=== PATIENT | female | born 1935 | race Caucasian/White ===

== ENCOUNTER 2017-09-10 12:00 | Inpatient (IN) ==
[2017-09-10] MEDS ORDERED: Nitroglycerin 0.4 MG TAB.SUBL SL ONE (12:10)
--- NOTE | 2017-09-10 12:12 | Emergency Department Note ---
Disposition Clinical Impression: Chest pain Qualifiers: Chest pain type: unspecified Qualified Code(s): R07.9 - Chest pain, unspecified A-fib Qualifiers: Atrial fibrillation type: unspecified Qualified Code(s): I48.91 - Unspecified atrial fibrillation Disposition: Admitted As Inpatient Condition: Good Time of Disposition: 16:20 General Adult HPI - General Chief complaint: ED Chest Pain Stated complaint: CP Time Seen by Provider: 09/10/17 12:09 Source: patient, EMS Mode of arrival: EMS Limitations: no limitations Nursing Notes Reviewed: Yes Vital Signs Reviewed: Yes - History of Present Illness HPI Narrative: Patient started having chest pain that woke her up around 3 AM this morning. She did take 324 mg of aspirin. Reports that the pain was almost completely relieved with 2 nitroglycerin. She reports no cardiac history. No shortness of breath. Denies a feeling of palpitations. No radiation of the pain. Quality is an 8. Pain Scale: 4 - Related Data Home Medications Medication Instructions Recorded Confirmed Amlodipine Besylate/Benazepril 1 cap PO DAILY 09/10/17 09/10/17 [Lotrel 10-20 mg Capsule] Aspirin/Acetaminophen/Caffeine 1 tab PO Q8H PRN 09/10/17 09/10/17 [Excedrin Extra Strength Caplet] Metoprolol [Lopressor] 25 mg PO BID 09/10/17 09/10/17 Allergies Allergy/AdvReac Type Severity Reaction Status Date / Time Sulfa (Sulfonamide Allergy Hives Verified 12/13/15 20:46 Antibiotics) All systems ED: reviewed and negative except as stated. Constitutional: Denies: fever, chills Cardiovascular: Reports: chest pain. Denies: palpitations, dyspnea on exertion , syncope Respiratory: Denies: cough, dyspnea Gastrointestinal: Denies: abdominal pain, nausea, vomiting, diarrhea Genitourinary: Denies: urgency, dysuria, frequency Musculoskeletal: Denies: back pain, neck pain Neurological: Denies: headache, weakness Past Medical History - Past Medical History Medical history: Reports: arthritis, hypertension Psychiatric history: Reports: no psych history - Social History Smoking Status: Never smoker Smokeless Tobacco Status: No Alcohol use: Reports: none Drug use: Reports: none Physical Exam - General Limitations: no limitations General appearance: alert, in no apparent distress - Head Head exam: atraumatic, normocephalic, normal inspection - Eye Eye exam: Present: normal appearance, PERRL, EOMI. Absent: scleral icterus - ENT ENT exam: normal exam, normal oropharynx, mucous membranes moist - Neck Neck exam: Present: normal inspection, full ROM, trachea midline. Absent: tenderness, meningismus - Chest Chest inspection: Present: normal inspection, symmetric chest wall rise - Respiratory Respiratory exam: Present: normal lung sounds bilaterally. Absent: respiratory distress, accessory muscle use - Cardiovascular Cardiovascular exam: Present: regular rate, irregular rhythm, normal heart sounds - Abdominal Exam Abdominal exam: Present: soft, Non-Tender. Absent: tenderness, distention - Extremities Exam Extremities exam: Present: normal inspection, full ROM, normal capillary refill. Absent: tenderness, pedal edema - Back Exam Back exam: Present: normal inspection, full ROM. Absent: tenderness, CVA tenderness (R), CVA tenderness (L) - Neurological Exam Neurological exam: Present: alert, oriented X3 - Psychiatric Psychiatric exam: Present: normal affect, normal mood - Skin Skin exam: Present: warm, dry, intact, normal color. Absent: rash Course Course Narrative: Well-appearing elderly female presenting to the emergency department complaining of chest pain that began at 3 AM this morning. She states it woke her from sleep. It radiates into her back. No history of any cardiac disease. Is a nonsmoker. We will monitor this afternoon and was given 2 nitroglycerin which almost completely relieved the pain. She did also take 324 mg of aspirin prior to arrival. She is resting comfortably and does not appear to be in any distress at all. She does not appear to be 82 she appears to be younger on exam. Lung sounds are clear heart tones are normal. She denies any recent illnesses. She did have some nausea this morning however is no longer nauseated. She denies any abdominal pain. She does have bilateral lower extremity swelling that is chronic. We will get a cardiac workup on patient I anticipate admission. Patient is in A. fib at this time. This is a new problem for the patient. She has no history of this. She is currently taking the beta nanci. Her A. fib has been controlled around the 90s while she is here. - Reevaluation(s) Reevaluation #1: We will admit patient to the hospital for her new onset A. fib. We are withholding anticoagulation at this time due to a history of GI bleeding. This was 3 weeks ago. Time: 16:14 - Consultations Consultation #1: Dr Coello was consult. Due to patient's increased Chads vasc score he recommended heparinization of the patient if she had no contraindications. The patient does have a history of GI bleeding as recently as 3 weeks ago. We will withhold anticoagulation at this time. Time: 16:02 Consultation #2: Dr Mcqueen accepted pt in stable condiiton. Time: 16:16 Vital Signs Temperature 98.0 F 09/10/17 12:02 Pulse Rate 111 09/10/17 12:02 Respiratory Rate 18 09/10/17 12:02 Blood Pressure 119/81 09/10/17 12:02 O2 Sat by Pulse Oximetry 97 09/10/17 12:02 Temperature 98.0 F 09/10/17 12:02 Pulse Rate 99 09/10/17 15:08 Respiratory Rate 16 09/10/17 16:47 Blood Pressure 133/79 09/10/17 15:08 O2 Sat by Pulse Oximetry 95 09/10/17 15:08 Oxygen Delivery Oxygen Delivery Room Air Medical Decision Making - Medical Records Medical records reviewed: Yes I reviewed the patient's medical records. - Lab Data Lab results reviewed: Yes I reviewed the patient's lab results. Result diagrams: 09/10/17 12:24 09/10/17 12:24 Lab Results 09/10/17 09/10/17 09/10/17 Range/Units 12:24 12:24 12:24 WBC 11.5 H (4.3-11.1) K/mcL RBC 4.39 (3.82-4.97) M/mcL Hgb 12.6 (11.5-15.4) g/dL Hct 39.7 (35.3-44.9) % MCV 90.4 (83.0-100.0) fL MCH 28.7 (28.0-33.3) pg MCHC 31.7 (31.6-35.5) g/dL RDW 13.3 (11.5-14.5) % Plt Count 184 (140-400) K/mcL MPV 10.8 (9.4-12.4) fL Immature Gran % 0.5 (0-4) % Seg Neutrophils % 92.0 % Lymphocytes % 4.8 % Monocytes % 2.2 % Eosinophils % 0.1 % Basophils % 0.4 % Neutrophils # 10.6 H (1.6-8.9) K/mcL Lymphocytes # 0.6 (0.6-4.6) K/mcL Monocytes # 0.3 (0.0-1.3) K/mcL Eosinophils # 0.0 (0.0-0.6) K/mcL Basophils # 0.1 (0.0-0.2) K/mcL PT 11.2 (9.4-12.1) Seconds INR 1.0 APTT 28.2 (26.0-36.0) Seconds Sodium 140 (136-145) mEq/L Potassium 3.8 (3.5-5.1) mEq/L Chloride 110 H (98-107) mEq/L Carbon Dioxide 21 L (23-29) mEq/L BUN 25 H (8-23) mg/dL Creatinine 1.34 H (0.60-1.20) mg/dL Est GFR ( Amer) 46 L (> 60) Est GFR (Non-Af Amer) 38 L (> 60) BUN/Creatinine Ratio 19 (6-26) Glucose 149 H (70-105) mg/dL Calculated Osmolality 297 (280-300) Calcium 9.1 (8.6-10.3) mg/dL Troponin I < 0.03 (< 0.04) ng/mL TSH 1.077 (0.340-5.600) mcIU/mL - Radiology Data Radiology results reviewed: Yes I reviewed the patient's radiology results. - EKG Data EKG #1 EKG attestation: Yes I reviewed and interpreted this EKG. EKG results narrative: A. fib at a rate of 96. QRS duration is 93. QT is 369. QTC is 423. No signs of acute ischemia however she was in a normal sinus rhythm in January 2005. Attestation Statement - Attestation Attestation: I examined this patient and my medical decision-making was reviewed with the Resident Physician, Dr. Guerrero. I agree with the documented findings, disposition and treatment plan as described except to the extent set forth below. Patient is an 82-year-old elderly white female with a history of hypertension who presents to the emergency department with her daughter who resides with her at home for acute onset of epigastric and left-sided chest pain that woke her from sleep at about 3:30 this morning. Patient states she has had cardiac testing echocardiograms and stress test in the past but nothing that has been abnormal or required additional treatment. Patient states that she received aspirin and 2 nitroglycerin by EMS in route and on arrival to the emergency department is pain-free at this time. Patient is asymptomatic here. I agree with patient's physical exam findings and as documented. Vital signs are stable. EKG shows atrial fibrillation at a rate of 96 bpm. No acute ischemia seen. This is new compared to her prior EKGs in the system. Patient denies any prior history of rate problems or atrial fibrillation. We will continue to watch the patient closely as well as lab evaluation, chest x -ray, and continue observing her rate. At this time she does not require rate control. Patient will likely require admission to the hospital for further cardiac evaluation for new onset atrial fibrillation as well as chest pain. I examined this patient and my medical decision-making was reviewed with the Resident Physician. I agree with the documented findings, disposition and treatment plan as described except to the extent set forth below.
[2017-09-10 12:44] LABS: Basophils # 0.1 K/mcL (0.0-0.2); Basophils % 0.4 %; Eosinophils % 0.1 %; Hematocrit 39.7 % (35.3-44.9); Hemoglobin 12.6 g/dL (11.5-15.4); Immature Granulocytes % 0.5 % (0-4); Lymphocytes # 0.6 K/mcL (0.6-4.6); Lymphocytes % 4.8 %; Mean Corpuscular HGB Conc 31.7 g/dL (31.6-35.5); Mean Corpuscular Hemoglobin 28.7 pg (28.0-33.3); Mean Corpuscular Volume 90.4 fL (83.0-100.0); Mean Platelet Volume 10.8 fL (9.4-12.4); Monocytes # 0.3 K/mcL (0.0-1.3); Monocytes % 2.2 %; Neutrophils # 10.6 K/mcL (1.6-8.9); Platelet Count 184 K/mcL (140-400); Red Blood Count 4.39 M/mcL (3.82-4.97); Red Cell Distribution Width 13.3 % (11.5-14.5)
[2017-09-10 12:50] LABS: Prothrombin Time 11.2 Seconds (9.4-12.1)
[2017-09-10 12:52] LABS: Activated Partial Thrombo Time 28.2 Seconds (26.0-36.0)
[2017-09-10 12:58] LABS: Troponin I < 0.03 ng/mL (< 0.04)
[2017-09-10 13:01] LABS: BUN/Creatinine Ratio 19 (6-26); Blood Urea Nitrogen 25 mg/dL (8-23); Calcium 9.1 mg/dL (8.6-10.3); Carbon Dioxide 21 mEq/L (23-29); Chloride 110 mEq/L (98-107); Glucose 149 mg/dL (70-105); Osmolality,Calculated 297 (280-300); Potassium 3.8 mEq/L (3.5-5.1); Sodium 140 mEq/L (136-145); eGFR For African Americans 46 (> 60); eGFR For Non-African Americans 38 (> 60)
[2017-09-10 13:12] LABS: Thyroid Stimulating Hormone 1.077 mcIU/mL (0.340-5.600)
[2017-09-10] MEDS ORDERED: *HR* Heparin 5,000 UNIT/ML VIAL IVP PRN ×2 (15:56)
[2017-09-10] MEDS ORDERED: *HR* Heparin 5,000 UNIT/ML VIAL IVP ONE (15:56)
[2017-09-10] MEDS ORDERED: Heparin 25,000 UNIT/500 ML D5W 25,000 UNIT/500 ML BAG IVC SCH (16:00)
[2017-09-10] MEDS ORDERED: Naloxone 0.4 MG/ML INJ IVP PRN (16:42)
[2017-09-10] MEDS ORDERED: traMADol 50 MG TABLET PO PRN (16:42)
[2017-09-10] MEDS ORDERED: Metoprolol XL (24 HR) Succ 25 MG TAB.ER.24H PO SCH (16:45)
--- NOTE | 2017-09-10 16:56 | Internal Med History&Physical ---
Date of Encounter: 09/10/17 Time of Encounter: 16:49 Assessment and Plan (1) Chest pain Current visit: Yes Status: Acute - Likely cardiac related given afib with RVR, and relieved by nitro. - troponin negativex1. will cycle. - EKG afib with no ST-T changes. - ECHO ordered. - tele monitoring. Qualifiers: Chest pain type: unspecified Qualified Code(s): R07.9 - Chest pain, unspecified (2) A-fib Current visit: Yes Status: Acute - Had PAF in the past but resolved, not on AC prior to admission. - ChADSvas score 4, anticoagulatin was recommended by cardio. will start her on LMWH with therapeutic dose. Can be switched to Coumadin or NOAC if needed. - increase Lopressor to 25 mg BID, home dose 12.5 mg BID. Rate currently 90- 110. BP stable, no chest pain. - IVF for possible dehydration - ECHO ordered, cardio consulted, appreciate help. Qualifiers: Atrial fibrillation type: unspecified Qualified Code(s): I48.91 - Unspecified atrial fibrillation (3) Hypertension Current visit: No Status: Chronic - stable, controlled. Qualifiers: Hypertension type: essential hypertension Qualified Code(s): I10 - Essential (primary) hypertension (4) Diverticulosis Current visit: No Status: Chronic - high-fiber diet. Qualifiers: Diverticulosis site: unspecified location Diverticulosis bleeding: diverticulosis without bleeding Qualified Code(s): K57.90 - Diverticulosis of intestine, part unspecified, without perforation or abscess without bleeding (5) OSKAR (acute kidney injury) Current visit: Yes Status: Acute - unknown baseline creatinine, will give IVF and repeat RFP in am. Internal Medicine - H&P: HPI Admitted From: Home Plans for Post Hospital Care: Home History of present illness: Ms. Puente is a 82 year old female with past medical history of hypertension and arthritis presented to the emergency department complaining of chest pain that began at 3 AM this morning. She states it woke her from sleep. It radiates into her back. No history of any cardiac disease besides HTN. She is a nonsmoker. She did also take 324 mg of aspirin prior to arrival. She was given 2 nitroglycerin at ED which almost completely relieved the pain. She denies any recent illnesses. She did have some nausea this morning however is no longer nauseated. She denies any abdominal pain. She does have bilateral lower extremity swelling that is chronic. At the ED, her vital signs were stable besides tachycardia. EKG revealed atrial fibrillation with rapid ventricular response and heart rate was around 110-130. Patient did report a remote history of atrial fib about 9 years ago but that was resolved spontaneously. She takes Lopressor for hypertension but not on any anticoagulation agent. Her labs revealed normal CBC, slightly elevated creatinine, blood glucose. Troponin was negative, TSH was normal. Cardiology was consulted and recommended anticoagulation. She will be admitted as inpatient for further management. Past Med Surg Social Fam HX - Past Medical History Medical history: arthritis, hypertension Psychiatric history: no psych history - Social History Smoking Status: Never smoker Smokeless Tobacco Status: No Alcohol use: none Drug use: none Internal Medicine - H&P: Meds Amlodipine Besylate/Benazepril [Lotrel 10-20 mg Capsule] 1 cap PO DAILY [History] Aspirin/Acetaminophen/Caffeine [Excedrin Extra Strength Caplet] 1 tab PO Q8H PRN 09/10/17 [History] Metoprolol [Lopressor] 25 mg PO BID 09/10/17 [History] 3 Allergy/AdvReac Type Severity Reaction Status Date / Time Sulfa (Sulfonamide Allergy Hives Verified 12/13/15 20:46 Antibiotics) All Systems PM: A 10-system review of systems was performed and is negative for pertinent findings except as documented above in the HPI. Review of systems: REVIEW OF SYSTEMS: CONSTITUTIONAL: No weight loss, fever, chills, weakness or fatigue. HEENT: Eyes: No visual loss, blurred vision, double vision or yellow sclerae. Ears, Nose, Throat: No hearing loss, sneezing, congestion, runny nose or sore throat. SKIN: No rash or itching. CARDIOVASCULAR: see HPI. RESPIRATORY: see HPI. GASTROINTESTINAL: see HPI. GENITOURINARY: No dysuria, urgency, or frequency. NEUROLOGICAL: No headache, dizziness, syncope, paralysis, ataxia, numbness or tingling in the extremities. No change in bowel or bladder control. MUSCULOSKELETAL: No muscle, back pain, joint pain or stiffness. HEMATOLOGIC: No anemia, bleeding or bruising. LYMPHATICS: No enlarged nodes. No history of splenectomy. PSYCHIATRIC: No history of depression or anxiety. ENDOCRINOLOGIC: No reports of sweating, cold or heat intolerance. No polyuria or polydipsia. - Constitutional Vitals: Temp Pulse Resp BP Pulse Ox 98.0 F 99 16 133/79 95 09/10/17 12:02 09/10/17 15:08 09/10/17 16:47 09/10/17 15:08 09/10/17 15:08 General appearance: Present: A&O X 3 Exam: PHYSICAL EXAMINATION: GENERAL APPEARANCE: The patient is alert, oriented and in no acute distress. HEENT: Head is normocephalic. The sinuses are nontender. Pupils are equal and reactive. The nares are patent. Oropharynx clear without lesions. NECK: Supple without lymphadenopathy. HEART: Regular rate and rhythm. LUNGS: No crackles or wheezes are heard. ABDOMEN: Soft, nontender, nondistended with good bowel sounds heard. Inguinal area is normal. EXTREMITIES: Without cyanosis, clubbing or edema. NEUROLOGICAL: Gross nonfocal. SKIN: Warm and dry without any rash. Internal Med - H&P Results - Labs CBC & Chem 7: 09/10/17 12:24 09/10/17 12:24
[2017-09-10] MEDS: *HR* Enoxaparin 80 MG/0.8 ML SYRINGE SQ SCH (17:14)
[2017-09-10] MEDS: Ringers Solution, Lactated 1,000 ML IVC SCH (18:55)
--- NOTE | 2017-09-10 22:35 | Cardiology Consult Note ---
Date of Encounter: 09/10/17 Time of Encounter: 22:32 Assessment and Plan (1) Chest pain Current Visit: Yes Status: Acute Atypical presentation with negative cardiac markers and unremarkable EKG. Consider inpatient versus outpatient chemical stress test Qualifiers: Chest pain type: unspecified Qualified Code(s): R07.9 - Chest pain, unspecified (2) A-fib Current Visit: Yes Status: Acute Parts is mitral for ablation likely suspected elevated risk for stroke therefore anticoagulated and recommended upon discharge. Patient has history of rectal bleeds possibly from her diverticulitis in the past. Would ask primary team for clearance in regards to starting anti-coagulation therapy. Continue rate control and titrate as tolerated. Echocardiogram to evaluate for structural heart abnormalities Qualifiers: Atrial fibrillation type: unspecified Qualified Code(s): I48.91 - Unspecified atrial fibrillation Discussion w patient/family: The assessment and plan as outlined above was discussed with the patient and/or family members who expressed understanding and agreement. All questions were answered. Thank you for involving us in the care of your patient. Please call with any questions. History of Present Illness Consult date: 09/10/17 Consult reason: chest pain Chief complaint: chest pain History of present illness: Ms. Puente is a 82 year old female with history of hypertension diverticulitis presents with chest pain. Patient describes atypical type chest pain retrosternal described as pressure-like nonradiating with no aggravating or relieving factors. She also denies any associated symptoms. Her troponins are negative 3 and chest x-ray unremarkable. On evaluation patient was noted to be atrial fibrillation with no significant EKG changes suggestive of ischemia. Patient states she has had 1 episodes of bright red blood from her diverticulitis recently. Her chadsVasc score is 4. She denies any palpitations and is unaware of her atrial fibrillation. There is some documentation of a previous history of proximal atrial fibrillation in the remote past. We discussed risks benefits and alternatives of stroke risk reduction with an antiplatelet versus anticoagulation and she is agreed to pursue anticoagulation. I will defer her GI workup to the hospitalist group in regards to her safety starting anticoagulation. Past Med Surg Social Fam HX - Past Medical History Medical history: arthritis, hypertension Psychiatric history: no psych history - Social History Smoking Status: Never smoker Smokeless Tobacco Status: No Alcohol use: none Drug use: none - Family History Mother History Unknown: Yes Medications and Allergies Amlodipine Besylate/Benazepril [Lotrel 10-20 mg Capsule] 1 cap PO DAILY [History] Aspirin/Acetaminophen/Caffeine [Excedrin Extra Strength Caplet] 1 tab PO Q8H PRN 09/10/17 [History] Metoprolol [Lopressor] 25 mg PO BID 09/10/17 [History] 3 Allergy/AdvReac Type Severity Reaction Status Date / Time Sulfa (Sulfonamide Allergy Hives Verified 12/13/15 20:46 Antibiotics) All Systems Review: The remainder of the systems were reviewed and are negative Physical Examination Vital Signs, Last 4 Hours Temp Pulse Resp BP Pulse Ox 09/10/17 19:09 98.3 F 69 18 128/93 96 General: Conversant, No Apparent Distress HEENT: Atraumatic, Normocephaly, Mucus Membranes Moist Neck: No JVD, Normal carotid pulses Cardiac: Reg Rate and Rhythm, Normal S1 and S2, No Murmur Lungs: Normal Breath Sounds, No Wheeze, Rales, Rhonchi Neuro: Alert and responsive, No focal deficits noted Abdomen: Soft, Non-Tender Skin: No rashes noted on visualized skin Musculoskeletal: No Chest Wall Tenderness Extremities: No Clubbing, No Cyanosis, No Edema, Normal Pulses Results 09/10/17 12:24 09/10/17 12:24 Lab Results 09/10/17 17:45 Troponin I < 0.03 Consult Discharge Plan - Plan Referrals: NONE,PCP [Primary Care Provider] -
[2017-09-11 03:51] LABS: Hematocrit 37.6 % (35.3-44.9); Hemoglobin 11.8 g/dL (11.5-15.4); Mean Corpuscular HGB Conc 31.4 g/dL (31.6-35.5); Mean Corpuscular Hemoglobin 28.3 pg (28.0-33.3); Mean Corpuscular Volume 90.2 fL (83.0-100.0); Platelet Count 178 K/mcL (140-400); Red Blood Count 4.17 M/mcL (3.82-4.97); Red Cell Distribution Width 13.4 % (11.5-14.5)
[2017-09-11 04:20] LABS: Magnesium 2.1 mg/dL (1.6-2.6); Potassium 3.5 mEq/L (3.5-5.1)
[2017-09-11] MEDS: Ringers Solution, Lactated 1,000 ML IVC SCH (05:26)
[2017-09-11] MEDS: amLODIPine 5 MG TABLET PO SCH (08:07)
[2017-09-11] MEDS ORDERED: Lisinopril 20 MG TABLET PO SCH (09:00)
--- NOTE | 2017-09-11 09:02 | Cardiology Progress Note ---
Date of Encounter: 09/11/17 Time of Encounter: 09:00 Assessment and Plan (1) Chest pain Current Visit: Yes Status: Acute Per Cardiolpogy: Atypical presentation with troponins negative x 2. Echo pending. Consider inpatient versus outpatient chemical stress test. Qualifiers: Chest pain type: unspecified Qualified Code(s): R07.9 - Chest pain, unspecified (2) A-fib Current Visit: Yes Status: Acute Per Cardiology: Appears to be new onset. Average heart rate 91 on telemetry, remains A. fib. Currently A. fib in the 90s. Will increase BB for better HR control. SBP stable. Continue rate control and titrate as tolerated. Echocardiogram pending to evaluate for structural heart abnormalities. Regarding long-term anticoagulation, patient has history of rectal bleeds possibly from her diverticulitis in the past. Would ask primary team for clearance in regards to starting anti-coagulation therapy. Qualifiers: Atrial fibrillation type: unspecified Qualified Code(s): I48.91 - Unspecified atrial fibrillation (3) OSKAR (acute kidney injury) Current Visit: Yes Status: Acute Per Cardiology: Appears to mild OSKAR. Will decrease ACEI. Discussion w patient/family: The assessment and plan as outlined above was discussed with the patient and/or family members who expressed understanding and agreement. All questions were answered. Thank you for involving us in the care of your patient. Please call with any questions. Subjective Principal diagnosis: CP, afib Interval history: Denies any concerns over night. Denies any chest pain, shortness of breath, palpitations. Symptoms reported appear to be GERD-like in presentation. Objective Vital Signs, Last 4 Hours Temp Pulse Resp BP Pulse Ox 09/11/17 08:13 95 09/11/17 07:14 98.6 F 94 16 153/82 95 General: Conversant, No Apparent Distress HEENT: Atraumatic, Normocephaly Cardiac: No Murmur, Other (Irregularly irregular) Lungs: Normal Breath Sounds, No Wheeze, Rales, Rhonchi Neuro: Alert and responsive, No focal deficits noted Abdomen: Soft Skin: No rashes noted on visualized skin Extremities: No Edema, Normal Pulses Results 09/11/17 02:53 09/11/17 02:53 Lab Results Laboratory Tests 09/10/17 09/10/17 09/10/17 12:24 12:24 17:45 INR 1.0 Creatinine Est GFR (Non-Af Amer) Magnesium Troponin I < 0.03 < 0.03 TSH 1.077 09/11/17 02:53 INR Creatinine 1.34 H Est GFR (Non-Af Amer) 38 L Magnesium 2.1 Troponin I TSH Impressions Chest X-Ray 09/10/17 12:10 IMPRESSION: Cardiomegaly, otherwise, no acute abnormalities seen in the chest D/ / Sumeet Wilcox MD / Sumeet Wilcox MD Interpreting Provider: Sumeet Wilcox MD Intake & Output 09/08/17 09/09/17 09/10/17 09/11/17 23:59 23:59 23:59 23:59 Intake Total 1118 / 1118 Balance 1118 / 1118 Weight 73.255 kg 72.665 kg Active Medications Acetaminophen (Tylenol) 650 mg PO Q6HR PRN PRN Reason: Mild Pain/Fever Stop: 03/12/18 16:43 Amlodipine Besylate (Norvasc) 10 mg PO DAILY [facility] PRN Reason: Protocol Stop: 03/13/18 09:01 Last Admin: 09/11/17 08:07 Dose: 10 mg Calcium Polycarbophil (Fibercon) 625 mg PO BID [facility] Stop: 03/12/18 21:01 Last Admin: 09/11/17 08:07 Dose: 625 mg Enoxaparin Sodium (Lovenox) 70 mg 1 mg/kg (70 mg) SQ QPM [facility] PRN Reason: Protocol Stop: 03/12/18 18:01 Last Admin: 09/10/17 17:14 Dose: 70 mg Lactated Ringer's (Lactated Ringers) 1,000 mls @ 100 mls/hr IVC .Q10H [facility]N Stop: 09/11/17 12:44 Last Admin: 09/11/17 05:26 Dose: 100 mls/hr Lisinopril (Zestril) 20 mg PO DAILY [facility] PRN Reason: Protocol Stop: 03/13/18 09:01 Last Admin: 09/11/17 08:07 Dose: 20 mg Metoprolol Tartrate (Lopressor) 25 mg PO BID [facility] Stop: 03/12/18 21:01 Last Admin: 09/11/17 08:07 Dose: 25 mg Naloxone HCl (Narcan) 0.4 mg IVP Q2MIN PRN PRN Reason: SEE COMMENTS Stop: 03/12/18 16:43 Tramadol HCl (Ultram) 50 mg PO Q6HR PRN PRN Reason: Moderate Pain Stop: 03/12/18 16:43 - Imaging and Cardiology Echo: pending - EKG Interpretation EKG results cardiology: other (Telemetry reviewed with average heart rate 91 the past 12 hours, currently A. fib in the 90s, occasional rare PVCs with longest 3 beats in a row.) Consult Discharge Plan - Plan Referrals: NONE,PCP [Primary Care Provider] -
[2017-09-11] MEDS: Acetaminophen 325 MG TABLET PO PRN (12:29)
--- NOTE | 2017-09-11 13:47 | Internal Med Progress Note ---
Date of Encounter: 09/11/17 Time of Encounter: 13:45 - Assessment and plan (1) Chest pain Current Visit: Yes Status: Acute Assessment and plan: So far negative Trop No acute ST T changes on EKG However since pt is high risk for ACS, scheduled for Stress test in AM Cont ASA + BB 2 D Ehco - P Qualifiers: Chest pain type: unspecified Qualified Code(s): R07.9 - Chest pain, unspecified (2) A-fib Current Visit: Yes Status: Acute Assessment and plan: rate controlled with Metoprolol 50 BID 2 D Echo - P CHADSVASC 3 need anti coag Due to her hemmorhoidal bleeding history and CKD-3 would suggest Coumadin pt is currently on Lovenox daily dose started on Coumadin today Qualifiers: Atrial fibrillation type: unspecified Qualified Code(s): I48.91 - Unspecified atrial fibrillation (3) CKD (chronic kidney disease) stage 3, GFR 30-59 ml/min Current Visit: Yes Status: Acute Assessment and plan: stable Cr (4) Diverticulosis Current Visit: No Status: Chronic Assessment and plan: pt denied any severe GI bleed Denied any Abd pain now she does have very mild external hemorrhoidal bleeding 2 weeks ago need out pt f/u with GI as an out pt had normal Colonoscopy in 2008 as per pt Qualifiers: Diverticulosis site: unspecified location Diverticulosis bleeding: diverticulosis without bleeding Qualified Code(s): K57.90 - Diverticulosis of intestine, part unspecified, without perforation or abscess without bleeding (5) Hypertension Current Visit: No Status: Chronic Assessment and plan: stable with home meds Qualifiers: Hypertension type: essential hypertension Qualified Code(s): I10 - Essential (primary) hypertension - Subjective Interval history: Ms. Puente is a 82 year old female with past medical history of hypertension and arthritis presented to the emergency department complaining of chest pain. She stated it woke her from sleep. It radiates into her back. No history of any cardiac disease besides HTN. She is a nonsmoker. She did also take 324 mg of aspirin prior to arrival. She was given 2 nitroglycerin at ED which almost completely relieved the pain. In the ED, her vital signs were stable besides tachycardia. EKG revealed atrial fibrillation with rapid ventricular response and heart rate was around 110-130. Pt was admitted in the hospital and placed her on tele. She denied any active CP now. - Constitutional Vitals: Temp Pulse Resp BP Pulse Ox 98.4 F 104 16 159/99 93 09/11/17 11:39 09/11/17 11:39 09/11/17 11:39 09/11/17 11:39 09/11/17 11:39 General appearance: Present: A&O X 3, no acute distress, answers questions appropriately - Head Head exam: Present: atraumatic, normal inspection - Neck Neck exam general surgery: Present: supple - Respiratory Respiratory exam: Present: decreased breath sounds, wheezes (mild). Absent: rales, respiratory distress, rhonchi - Cardiovascular Cardiovascular exam: Present: irregular rhythm, +S1, +S2. Absent: systolic murmur, tachycardia - GI/Abdominal GI/Abdominal exam: Present: normal bowel sounds, soft. Absent: rebound, rigid, tenderness - Extremities Exam Extremities exam: Present: pedal edema (chronic). Absent: calf tenderness, tenderness - Back Exam Back exam: Absent: CVA tenderness (L), CVA tenderness (R) - Neurological Exam Neurological exam: Present: alert, oriented X3 - Psychiatric Psychiatric exam: Present: normal affect, normal mood Internal Medicine: Result - Labs CBC & Chem 7: 09/11/17 02:53 09/11/17 02:53 Labs: Short CBC 09/11/17 Range/Units 02:53 WBC 8.7 (4.3-11.1) K/mcL Hgb 11.8 (11.5-15.4) g/dL Hct 37.6 (35.3-44.9) % Plt Count 178 (140-400) K/mcL BMP 09/11/17 02:53 Sodium 143 Potassium 3.5 Chloride 110 H Carbon Dioxide 26 BUN 19 Creatinine 1.34 H Glucose 105 Calcium 9.0 Cardiac Enzymes 09/10/17 Range/Units 17:45 Troponin I < 0.03 (< 0.04) ng/mL - ABG Interpretation ABG results: PT/INR, D-dimer PT 11.2 Seconds (9.4-12.1) 09/10/17 12:24 Consult Discharge Plan - Plan Referrals: NONE,PCP [Primary Care Provider] -
[2017-09-11] MEDS: *HR* Enoxaparin 80 MG/0.8 ML SYRINGE SQ SCH (17:09)
[2017-09-11] MEDS ORDERED: Warfarin perPT PO PRN (18:00)
[2017-09-11] MEDS ORDERED: *HR* Warfarin 3 MG TABLET PO ONE (18:00)
[2017-09-12 04:30] LABS: Basophils # 0.1 K/mcL (0.0-0.2); Basophils % 0.7 %; Eosinophils # 0.3 K/mcL (0.0-0.6); Eosinophils % 3.6 %; Hematocrit 37.3 % (35.3-44.9); Hemoglobin 11.9 g/dL (11.5-15.4); Immature Granulocytes % 0.4 % (0-4); Lymphocytes # 1.4 K/mcL (0.6-4.6); Lymphocytes % 18.9 %; Mean Corpuscular HGB Conc 31.9 g/dL (31.6-35.5); Mean Corpuscular Hemoglobin 28.9 pg (28.0-33.3); Mean Corpuscular Volume 90.5 fL (83.0-100.0); Mean Platelet Volume 10.7 fL (9.4-12.4); Monocytes # 0.7 K/mcL (0.0-1.3); Monocytes % 9.2 %; Neutrophils # 4.8 K/mcL (1.6-8.9); Platelet Count 174 K/mcL (140-400); Red Blood Count 4.12 M/mcL (3.82-4.97); Red Cell Distribution Width 13.7 % (11.5-14.5); Segmented Neutrophils % 67.2 %
[2017-09-12 04:35] LABS: INR 1.1; Prothrombin Time 11.8 Seconds (9.4-12.1)
[2017-09-12 04:46] LABS: Calcium 8.8 mg/dL (8.6-10.3); Magnesium 1.9 mg/dL (1.6-2.6); Potassium 3.6 mEq/L (3.5-5.1)
[2017-09-12] MEDS ORDERED: Regadenoson 0.4 MG/5 ML SYRINGE IVP ONE (06:05)
[2017-09-12] MEDS: Lisinopril 20 MG TABLET PO SCH (07:40)
[2017-09-12] MEDS: amLODIPine 5 MG TABLET PO SCH (07:40)
[2017-09-12] MEDS: Acetaminophen 325 MG TABLET PO PRN (07:45)
--- NOTE | 2017-09-12 07:59 | Cardiology Progress Note ---
Date of Encounter: 09/12/17 Time of Encounter: 07:50 Assessment and Plan (1) Chest pain Current Visit: Yes Status: Acute Per Cardiolpogy: Atypical presentation with troponins negative x 2. Echo showed preserved EF. Stress test pending today. Qualifiers: Chest pain type: unspecified Qualified Code(s): R07.9 - Chest pain, unspecified (2) A-fib Current Visit: Yes Status: Acute Per Cardiology: Appears to be new onset. Average heart rate 84 on telemetry, remains A. fib. Noted to being A. fib in the 130s this morning. Currently A. fib in the 80's - 90's. SBP 130's. Will increase Lopressor to 75 mg by mouth twice a day. We will discontinue Norvasc 10 mg by mouth daily to allow for titration of AV arleth blocking agents. Regarding long-term anticoagulation, patient has history of rectal bleeds possibly from her diverticulitis in the past. Patient has been started on Coumadin for anticoagulation. Will discontinue Lovenox. Will add daily INR. Target INR 2.0-3.0. Qualifiers: Atrial fibrillation type: unspecified Qualified Code(s): I48.91 - Unspecified atrial fibrillation (3) OSKAR (acute kidney injury) Current Visit: Yes Status: Acute Per Cardiology: Appears to mild OSKAR vs CKD (no previous records for comparison). On ACEi. Continue to monitor closely. Discussion w patient/family: The assessment and plan as outlined above was discussed with the patient who expressed understanding and agreement. All questions were answered. Thank you for involving us in the care of your patient. Please call with any questions. Subjective Principal diagnosis: CP, afib Interval history: Patient denies any concerns or complaints. Denies any chest pain, short of breath, palpitations. Objective Vital Signs, Last 4 Hours Temp Pulse Resp BP Pulse Ox 09/12/17 07:19 98.4 F 86 17 137/76 93 General: Conversant, No Apparent Distress Cardiac: No Murmur, Other (Irregularly irregular) Lungs: Normal Breath Sounds, No Wheeze, Rales, Rhonchi Neuro: Alert and responsive, No focal deficits noted Extremities: No Edema Results 09/12/17 04:08 09/12/17 04:08 Lab Results Laboratory Tests 09/10/17 09/10/17 09/12/17 12:24 17:45 04:08 Creatinine 1.45 H Est GFR (Non-Af Amer) 35 L Troponin I < 0.03 < 0.03 Impressions Echocardiogram 09/11/17 16:48 Impressions: LVEF 55%. Indeterminate diastolic function. Normal right ventricular structure and function. Severely dilated left atrium. Severely sclerotic aortic valve leaflets. Mild-moderate mitral regurgitation. Mild pulmonary hypertension. Left Ventricular Wall Motion: Rest Echo Findings All wall segments showed normal motion. Findings: Study Quality * Technically adequate exam. ECG Findings * Atrial fibrillation. Left Ventricle * LVEF 55%. * Indeterminate diastolic function. Right Ventricle * Normal right ventricular structure and function. Left Atrium * Severely dilated left atrium. Right Atrium * Normal right atrial size. Interatrial Septum * No evidence of PFO by color Doppler. Aortic Valve * Severely sclerotic aortic valve leaflets. Mitral Valve * Mild-moderate mitral regurgitation. Tricuspid Valve * Mild tricuspid regurgitation. * Estimated RVSP is 28 mmHg. * Estimated RA pressure is 15 mmHg. * Mild pulmonary hypertension. Pulmonic Valve * Trace pulmonic regurgitation. Aorta * Normally sized aortic root. Pericardium * The pericardium appears normal. IVC * The IVC is dilated. * < 50% respiratory change. Active Medications Acetaminophen (Tylenol) 650 mg PO Q6HR PRN PRN Reason: Mild Pain/Fever Stop: 03/12/18 16:43 Last Admin: 09/12/17 07:45 Dose: 650 mg Calcium Polycarbophil (Fibercon) 625 mg PO BID [facility] Stop: 03/12/18 21:01 Last Admin: 09/12/17 07:40 Dose: 625 mg Enoxaparin Sodium (Lovenox) 70 mg 1 mg/kg (70 mg) SQ QPM [facility] PRN Reason: Protocol Stop: 03/12/18 18:01 Last Admin: 09/11/17 17:09 Dose: 70 mg Lisinopril (Zestril) 10 mg PO DAILY [facility] PRN Reason: Protocol Stop: 03/14/18 09:01 Last Admin: 09/12/17 07:40 Dose: 10 mg Metoprolol Tartrate (Lopressor) 50 mg PO BID [facility] Stop: 03/13/18 21:01 Last Admin: 09/12/17 07:40 Dose: 50 mg Naloxone HCl (Narcan) 0.4 mg IVP Q2MIN PRN PRN Reason: SEE COMMENTS Stop: 03/12/18 16:43 Omeprazole (Prilosec) 20 mg PO DAILY@0630 [facility] PRN Reason: Protocol Stop: 03/13/18 16:06 Last Admin: 09/12/17 06:12 Dose: 20 mg Tramadol HCl (Ultram) 50 mg PO Q6HR PRN PRN Reason: Moderate Pain Stop: 03/12/18 16:43 Warfarin Sodium (Coumadin Perpt) 1 each PO DAILY@1800 PRN PRN Reason: SEE COMMENTS Stop: 03/13/18 18:01 - Imaging and Cardiology Echo: report reviewed (Impressions: LVEF 55%. Indeterminate diastolic function. Normal right ventricular structure and function. Severely dilated left atrium. Severely sclerotic aortic valve leaflets. Mild-moderate mitral regurgitation. Mild pulmonary hypertension. Left Ventricular Wall Motion: Rest Echo Findings All wall segments showed normal motion.) - EKG Interpretation EKG results cardiology: other (Telemetry reviewed with average heart rate the past 12 hours 84, currently A. fib in the 80s to 90s) Consult Discharge Plan - Plan Referrals: NONE,PCP [Primary Care Provider] -
--- NOTE | 2017-09-12 15:17 | Event Note ---
Date of Encounter: 09/12/17 Time of Encounter: 15:15 - Cardiology Event Note Stress test results noted and showed "small sized primarily fixed perfusion defect involving the mid anterior and anterolateral delgado normal wall motion, findings appear to represent artifact, however ischemia cannot be excluded". A lengthy discussion with patient and family, patient initially preferred to go home and watch monitor, however family preferred to proceed with catheterization. Patient seen and discussed with primary service. Patient currently desires to remain for catheterization tomorrow. We will discontinue Coumadin for planned catheterization tomorrow. All questions answered.
[2017-09-12] MEDS ORDERED: *HR* Warfarin 3 MG TABLET PO ONE (18:00)
--- NOTE | 2017-09-12 18:04 | Internal Med Progress Note ---
Date of Encounter: 09/12/17 Time of Encounter: 15:00 - Assessment and plan (1) Chest pain Current Visit: Yes Status: Acute Assessment and plan: So far negative Trop No acute ST T changes on EKG Her Stress test showed small sized primarily fixed perfusion defect involving the mid anterior and anterolateral delgado Card suggested for LHC Talked to the pt and family, pt agreed to go for [facility] tomorrow Pt would like to have separate room. So talked to charge nurse and changed her room Cont ASA + BB 2 D Ehco - LVEF 55%, Indeterminate diastolic function Patient does need to stay in the hospital more than 2 midnights due to her complex medical problems, required LHC and does have CKD need close monitoring. So we will change her to full admission today. I did review my colleague Dr. Mcqueen's H & P including HPI, PMH, PSH, SH, and ROS no changes noticed. Family hsitory reviewed, mother had cardiac problems. Qualifiers: Chest pain type: unspecified Qualified Code(s): R07.9 - Chest pain, unspecified (2) A-fib Current Visit: Yes Status: Acute Assessment and plan: rate controlled with Metoprolol 50 BID CHADSVASC 3 need anti coag Due to her hemmorhoidal bleeding history and CKD-3 would suggest Coumadin d/c Lovenox Held Coumadin for today since pt is scheduled for C in AM Qualifiers: Atrial fibrillation type: unspecified Qualified Code(s): I48.91 - Unspecified atrial fibrillation (3) CKD (chronic kidney disease) stage 3, GFR 30-59 ml/min Current Visit: Yes Status: Acute Assessment and plan: stable Cr started her on Acetylcystiene today cont close monitoring (4) Diverticulosis Current Visit: No Status: Chronic Assessment and plan: pt denied any severe GI bleed Denied any Abd pain now she does have very mild external hemorrhoidal bleeding 2 weeks ago need out pt f/u with GI as an out pt had normal Colonoscopy in 2008 as per pt Qualifiers: Diverticulosis site: unspecified location Diverticulosis bleeding: diverticulosis without bleeding Qualified Code(s): K57.90 - Diverticulosis of intestine, part unspecified, without perforation or abscess without bleeding (5) Hypertension Current Visit: No Status: Chronic Assessment and plan: stable with home meds Qualifiers: Hypertension type: essential hypertension Qualified Code(s): I10 - Essential (primary) hypertension - Subjective Interval history: Ms. Puente is a 82 year old female with past medical history of hypertension and arthritis presented to the emergency department complaining of chest pain. She stated it woke her from sleep. It radiates into her back. No history of any cardiac disease besides HTN. She is a nonsmoker. She did also take 324 mg of aspirin prior to arrival. She was given 2 nitroglycerin at ED which almost completely relieved the pain. In the ED, her vital signs were stable besides tachycardia. EKG revealed atrial fibrillation with rapid ventricular response and heart rate was around 110-130. Pt was admitted in the hospital and placed her on tele. She denied any active CP now. She had stress test done today which showed small perfusion defect. - Constitutional Vitals: Temp Pulse Resp BP Pulse Ox 97.6 F 86 16 147/77 93 09/12/17 16:09 09/12/17 16:09 09/12/17 16:09 09/12/17 16:09 09/12/17 16:09 General appearance: Present: A&O X 3, no acute distress, answers questions appropriately - Head Head exam: Present: atraumatic, normal inspection - Neck Neck exam general surgery: Present: supple - Respiratory Respiratory exam: Present: decreased breath sounds. Absent: rales, respiratory distress, rhonchi, wheezes - Cardiovascular Cardiovascular exam: Present: RRR, +S1, +S2. Absent: tachycardia - GI/Abdominal GI/Abdominal exam: Present: normal bowel sounds, soft. Absent: rebound, rigid, tenderness - Extremities Exam Extremities exam: Absent: calf tenderness, pedal edema, tenderness - Back Exam Back exam: Absent: CVA tenderness (L), CVA tenderness (R) - Neurological Exam Neurological exam: Present: alert, oriented X3 - Psychiatric Psychiatric exam: Present: normal affect, normal mood Internal Medicine: Result - Labs CBC & Chem 7: 09/12/17 04:08 09/12/17 04:08 Labs: Short CBC 09/12/17 Range/Units 04:08 WBC 7.2 (4.3-11.1) K/mcL Hgb 11.9 (11.5-15.4) g/dL Hct 37.3 (35.3-44.9) % Plt Count 174 (140-400) K/mcL Neutrophils # 4.8 (1.6-8.9) K/mcL BMP 09/12/17 04:08 Sodium 142 Potassium 3.6 Chloride 108 H Carbon Dioxide 28 BUN 20 Creatinine 1.45 H Glucose 108 H Calcium 8.8 - ABG Interpretation ABG results: PT/INR, D-dimer PT 11.8 Seconds (9.4-12.1) 09/12/17 04:08 Consult Discharge Plan - Plan Referrals: NONE,PCP [Primary Care Provider] -
[2017-09-12] MEDS: *HR* Acetylcysteine 20% 600 MG/3 ML ORAL SYRINGE PO SCH (21:40)
[2017-09-13 05:51] LABS: Basophils % 0.5 %; Eosinophils # 0.2 K/mcL (0.0-0.6); Eosinophils % 2.7 %; Hematocrit 38.2 % (35.3-44.9); Immature Granulocytes % 0.4 % (0-4); Lymphocytes # 1.4 K/mcL (0.6-4.6); Lymphocytes % 17.9 %; Mean Corpuscular HGB Conc 31.4 g/dL (31.6-35.5); Mean Corpuscular Hemoglobin 28.4 pg (28.0-33.3); Mean Corpuscular Volume 90.5 fL (83.0-100.0); Mean Platelet Volume 10.8 fL (9.4-12.4); Monocytes # 0.6 K/mcL (0.0-1.3); Monocytes % 8.2 %; Neutrophils # 5.5 K/mcL (1.6-8.9); Platelet Count 170 K/mcL (140-400); Red Blood Count 4.22 M/mcL (3.82-4.97); Red Cell Distribution Width 13.7 % (11.5-14.5); Segmented Neutrophils % 70.3 %
[2017-09-13 06:04] LABS: INR 1.1; Prothrombin Time 11.6 Seconds (9.4-12.1)
[2017-09-13 06:13] LABS: Calcium 8.9 mg/dL (8.6-10.3); Potassium 3.6 mEq/L (3.5-5.1)
--- NOTE | 2017-09-13 09:21 | Event Note ---
Date of Encounter: 09/13/17 Time of Encounter: 08:30 - Cardiology Event Note Laboratory Tests 09/13/17 09/13/17 05:25 05:25 INR 1.1 Creatinine 1.23 H Est GFR (Non-Af Amer) 42 L Kidney function stable. Patient denies any concerns over night. Patient still agreeable and desires to proceed with catheterization today. Further recommendations after catheterization. All questions answered.
[2017-09-13] MEDS: Lisinopril 20 MG TABLET PO SCH (09:50)
[2017-09-13] MEDS: *HR* Acetylcysteine 20% 600 MG/3 ML ORAL SYRINGE PO SCH ×3 (09:51→10:07)
[2017-09-13] MEDS ORDERED: Heparin 1,000 UNITS/500 mL 500 ML ONE (13:26)
[2017-09-13] MEDS ORDERED: ISOVUE-370 200 ML INFUS..BTL IV ONE ×2 (13:26→14:34)
[2017-09-13] MEDS ORDERED: *HR* Heparin 10,000 UNIT/10 ML VIAL ONE (13:37)
[2017-09-13] MEDS ORDERED: 0.9 % Sodium Chloride 1,000 ML ONE ×2 (13:37→14:09)
[2017-09-13] MEDS ORDERED: Nitroglycerin 1,000 MCG/10 ML VIAL IV ONE (13:37)
--- NOTE | 2017-09-13 14:11 | Pre-Sedation Evaluation ---
Pre-sedation evaluation - Pre-sedation checklist Date of procedure: 09/13/17 Procedure: heart cath Recent Vitals: Last Vital Signs Temp 98.8 F 09/13/17 10:45 Pulse 100 09/13/17 10:45 Resp 16 09/13/17 10:45 BP 137/91 09/13/17 10:45 Pulse Ox 95 09/13/17 10:45 H&P (including ROS) documented in medical record: Yes Previous reaction to sedatives/anesthetics: No Dietary Status: NPO after Midnight Airway Assessment: Patient can open mouth completely, TMJ function normal, Micrognathia (under-bite, receding chin) absent, Neck with adequate range of motion Dentition: No loose teeth or bridges Possible difficult airway: No ASA Classification *see protocol: CLASS II-Mild systemic disease Plan of Care: Pt appropriate candidate for procedure/moderate/conscious sedation , Risks/benefits of procedure/sedation discussed w/ patient/family
[2017-09-13] MEDS ORDERED: *HR* Midazolam HCl 2 MG/2 ML VIAL ONE ×2 (14:17→14:48)
[2017-09-13] MEDS ORDERED: *HR* FentaNYL (PF) 100 MCG/2 ML VIAL ONE (14:17)
--- NOTE | 2017-09-13 14:19 | Internal Med Progress Note ---
Date of Encounter: 09/13/17 Time of Encounter: 14:15 - Assessment and plan (1) Chest pain Current Visit: Yes Status: Acute Assessment and plan: Abnormal stress test. Plans for [facility] today. EKG with no acute ST T wave changes. c/w BB. May need ASA added. Qualifiers: Chest pain type: unspecified Qualified Code(s): R07.9 - Chest pain, unspecified (2) A-fib Current Visit: Yes Status: Acute Assessment and plan: c/w current metoprolol. Restart coumadin post [facility]. Qualifiers: Atrial fibrillation type: unspecified Qualified Code(s): I48.91 - Unspecified atrial fibrillation (3) CKD (chronic kidney disease) stage 3, GFR 30-59 ml/min Current Visit: Yes Status: Acute Assessment and plan: Seems around baseline. Will get mucomyst due to [facility] dye (4) Diverticulosis Current Visit: No Status: Chronic Assessment and plan: No signs of bleed. Normal colonoscopy 2008. f/u with GI outpatient. pt denied any severe GI bleed. she does have very mild external hemorrhoidal bleeding 2 weeks ago. Qualifiers: Diverticulosis site: unspecified location Diverticulosis bleeding: diverticulosis without bleeding Qualified Code(s): K57.90 - Diverticulosis of intestine, part unspecified, without perforation or abscess without bleeding (5) Hypertension Current Visit: No Status: Chronic Assessment and plan: Stable. c/w current metoprolol/lisinopril. Qualifiers: Hypertension type: essential hypertension Qualified Code(s): I10 - Essential (primary) hypertension (6) DVT prophylaxis Current Visit: Yes Status: Acute Assessment and plan: anticoagulation is on hold now due to [facility] later today. Will restart afterwards. - Subjective Interval history: Patient was seen and examined. No acute events. Denies chest pain currently. Plans for [facility] today. Afebrile. Admitted with chest pain and found to be in afib with RVR. Stress test done was abnormal which prompted the C. Started on Anticoagulation. - Constitutional Vitals: Temp Pulse Resp BP Pulse Ox 98.8 F 100 16 137/91 95 09/13/17 10:45 09/13/17 10:45 09/13/17 10:45 09/13/17 10:45 09/13/17 10:45 General appearance: Present: A&O X 3, no acute distress, answers questions appropriately Exam: GEN: NAD CVS: RRR. S1, S2, No m/r/g RESP: CTAB ABD: Soft, NT, ND, +BS EXT: No edema. 2+ DP. No rashes NEURO: Nonfocal Internal Medicine: Result - Labs CBC & Chem 7: 09/13/17 05:25 09/13/17 05:25 Labs: Short CBC 09/13/17 Range/Units 05:25 WBC 7.8 (4.3-11.1) K/mcL Hgb 12.0 (11.5-15.4) g/dL Hct 38.2 (35.3-44.9) % Plt Count 170 (140-400) K/mcL Neutrophils # 5.5 (1.6-8.9) K/mcL BMP 09/13/17 05:25 Sodium 142 Potassium 3.6 Chloride 109 H Carbon Dioxide 27 BUN 21 Creatinine 1.23 H Glucose 112 H Calcium 8.9 - ABG Interpretation ABG results: PT/INR, D-dimer PT 11.6 Seconds (9.4-12.1) 09/13/17 05:25 Consult Discharge Plan - Plan Referrals: NONE,PCP [Primary Care Provider] -
[2017-09-13] MEDS ORDERED: *HR* Bivalirudin 250 MG VIAL IVC ONE (14:34)
[2017-09-13] MEDS ORDERED: *HR* Ticagrelor 90 MG TABLET ONE (14:53)
--- NOTE | 2017-09-13 15:03 | Event Note ---
Date of Encounter: 09/13/17 Time of Encounter: 15:00 - Cardiology Event Note Per discussion with Dr. Kate Hurtado, s/p PANFILO to Prox LAD lesion.
[2017-09-13] MEDS ORDERED: 0.9 % Sodium Chloride 1,000 ML IVC SCH (15:15)
--- NOTE | 2017-09-13 18:29 | Invasive Diagnostic Lab Proc ---
Name: Dayana Puente Date of Study: 09/13/2017 Date: 1935 Ht: 60.0in Medical Record#: [id number] Age: 82 Wt: 158.73lb Gender: Female BSA: 1.69 Order #: [id number] BMI: 31 Physicians Procedure Physician: Jocy Hurtado MD, FACC Referring MD: Referring MD: Staff Name Position Time In Tiffanie Britton RT Monitor 02:06 PM Ariela Buchanan RN Commodity Manager 02:06 PM Geoffrey Washburn RN Commodity Manager 02:07 PM Trcaie Andujar RT (R) Scrub 02:07 PM Indications Indication Abnormal Test - Stress Procedures Performed Procedure L HRT ARTERY/VENTRICLE ANGIO PRQ CARD PANFILO STENT W/ANGIO 1 VSL Pre-Procedure Checklist Informed consent is complete signed and on chart. H&P is on chart. ID band is on and ID verified with patient. Patient NPO for procedure The procedure was described for the patient and questions were answered. Blood Pressure: 143/96 ECG is on chart. Rhythm: NSR Plan of Care Patient will tolerate the procedure without complications. Adequate level of comfort will be maintained. Hemodynamics will remain stable Patient will recover from procedure without complications. Respiratory function will be maintained. Cardiac rhythm will remain stable. Patient temperature will be maintained. Patient and/or family have verbalized understanding of the procedure. Patient Education Chief Complaint/Reason for Test: Cardiac Cath Developmental Category: Geriatric (65+ years) Developmentally Appropriate for Age: Yes Learning Barriers: None Education Needs: Procedure Education Method: Verbal Information Taught: Cardiac Cath Educational Evaluation: Able to repeat information Intravenous Access Time IV Size Location DC'd Fluid/Drip Rate Units RN 03:02 PM 22g 1" Patent On Arrival Rt Antecubital 0.9NaCl 25 ml/hr Allergies Sulfa (Sulfonamide Antibiotics) Vital Signs Time BP (mmHg) HR (bpm) O2 Sat. RR (bpm) LOC 02:11 PM / % 4 = Oriented but drowsy 02:11 PM / % 4 = Oriented but drowsy 02:26 PM / % 4 = Oriented but drowsy 02:24 PM 143 / 96 89 96 % 18 02:29 PM 132 / 84 94 95 % 14 02:34 PM 140 / 84 92 94 % 15 02:39 PM 148 / 93 106 95 % 19 02:44 PM 147 / 98 90 95 % 26 02:49 PM 151 / 94 94 94 % 42 02:54 PM 134 / 84 91 90 % 18 02:43 PM / % 4 = Oriented but drowsy 03:09 PM 132 / 98 77 89 % 20 4 = Oriented but drowsy 03:21 PM 134 / 82 81 94 % 16 5 = Fully awake and oriented or at pre-proc level 03:30 PM 142 / 91 68 95 % 18 5 = Fully awake and oriented or at pre-proc level 04:00 PM 162 / 91 75 98 % 16 5 = Fully awake and oriented or at pre-proc level 04:15 PM 147 / 100 79 96 % 21 5 = Fully awake and oriented or at pre-proc level 04:32 PM 147 / 100 81 96 % 20 5 = Fully awake and oriented or at pre-proc level 04:45 PM 149 / 90 90 97 % 18 5 = Fully awake and oriented or at pre-proc level 05:00 PM 150 / 68 92 97 % 16 5 = Fully awake and oriented or at pre-proc level 05:34 PM 149 / 87 87 95 % 22 5 = Fully awake and oriented or at pre-proc level 05:45 PM 109 / 80 84 % 5 = Fully awake and oriented or at pre-proc level 06:00 PM 132 / 65 86 % 5 = Fully awake and oriented or at pre-proc level 06:15 PM 134 / 72 82 93 % 22 5 = Fully awake and oriented or at pre-proc level Procedural Medications Time Medication Dose Units Method Given By 02:18 PM Oxygen 2 L/min nasal cannula Geoffrey Washburn RN 02:19 PM Versed 1 mg Intravenous Geoffrey Washburn RN 02:19 PM Fentanyl 25 mcg Intravenous Geoffrey Washburn RN 02:24 PM Versed 1 mg Intravenous Geoffrey Washburn RN 02:24 PM Fentanyl 25 mcg Intravenous Geoffrey Washburn RN 02:25 PM Lidocaine 2% 14 ml Subcutaneous Jocy Hurtado MD, [facility] 02:43 PM Angiomax 0.75mg/kg bolus: 10.5 ml Intravenous Kallner, Tiffanie RT 02:44 PM Angiomax 1.75mg/kg/hr: 25.2 ml Intravenous Kallner, Tiffanie RT 02:48 PM Versed 1 mg Intravenous Geoffrey Washburn RN 02:48 PM Fentanyl 25 mcg Intravenous Geoffrey Washburn RN 02:50 PM Nitroglycerin 200 mcg Intracoronary Jocy Hurtado MD, FACC 03:09 PM Brilinta 180 mg Orally Geoffrey Washburn RN 06:21 PM Tylenol 650 mg Orally Ariela Buchanan RN ASA Classification: CLASS II- Mild systemic disease (i.e. well-controlled diabetes, hypertension, asthma, cigarette smoking) Marino Score Preprocedure Postprocedure Activity 2- Moves 4 extremities sustained head lift Activity 2- Moves 4 extremities sustained head lift Circulation 2- SBP +/= 20 points of pre-anesthetic level Circulation 2- SBP +/= 20 points of pre-anesthetic level Consciousness 2- Awake and alert oriented x 3 Consciousness 2- Awake and alert oriented x 3 O2 Saturation 2- Able to maintain O2 satruation of 92% on room air O2 Saturation 2- Able to maintain O2 satruation of 92% on room air Respiratory 2- Able to deep breathe and cough well Respiratory 2- Able to deep breathe and cough well Total Score 10 Total Score 10 Contrast Agent: Isovue Diagnostic Contrast: 105 ml Total Contrast: 105 ml Fluoro Dose: 349 mGy Procedure Log Time Note Enter By 01:38 PM CathStat 02:06 PM Pt arrived to [employer] 2 at 14:06 02:06 PM Tiffanie Britton RT Position: Monitor Time in: 14: 02:07 PM Ariela Buchanan RN Position: Commodity Manager Time in: 14: dsp 02:07 PM Geoffrey Washburn RN Position: Commodity Manager Time in: 14: dsp 02:07 PM Tracie Andujar RT (R) Position: Scrub Time in: 14: 02:07 PM Patient charges- Angio tray pack, Navilyst 3mm J, Pulse Oximetry and ACIST tubing and transducer dsp 02:07 PM IV Supplies used: J loop Angio Cath. [email or web address] 02:07 PM Case Delayed No [email or web address] 02:11 PM Physician arrived 14:11 kkallner :11 PM ASA Class CLASS II- Mild systemic disease (i.e. well-controlled diabetes, hypertension, asthma, cigarette smoking) kkall 02:11 PM Meet and greet completed kk 02:11 PM Sign in performed according to hospital policy. kk 02:11 PM Procedure start 14:11 kkall:11 PM Time: 14:11 Patient comfortable and pain free: Yes kk 02:11 PM Time: 14:11LOC: 4 = Oriented but drowsy kk 02:12 PM Clinical Presentation: Stable angina allner 02:12 PM CathStat 02:15 PM Vitals capture started with the following parameters, Patient=Adult, Interval=5 min, Initial Tzozaojt=587 mmHg, Deflation Rate=5 mmHg, Cuff placed on Right Arm 02:15 PM Vitals capture stopped. 02:19 PM Time: 14:18 Oxygen on at 2 L/min per nasal cannula by Geoffrey Washburn RN court : PM Time: 14:19 Versed 1 mg Intravenous Given by Geoffrey Washburn RN : PM Time: 14:19 Fentanyl 25 mcg Intravenous Given by Geoffrey Washburn RN court 02:23 PM Vitals capture started with the following parameters, Patient=Adult, Interval=5 min, Initial Cadwfixr=422 mmHg, Deflation Rate=5 mmHg, Cuff placed on Right Arm 02:24 PM HR=89 bpm, QQBK=359/96 mmhg, SpO2=96.0 %, Resp=18 B/min 02:24 PM Time: 14:24 Versed 1 mg Intravenous Given by Geoffrey Washburn RN court 02:24 PM Time: 14:24 Fentanyl 25 mcg Intravenous Given by Geoffrey Washburn RN ricci 02: PM Time out performed according to hospital policy : PM Time: 14:25 14 ml Lidocaine 2% to right groin Subcutaneous Given by Jocy Hurtado MD, [facility] : PM Access obtained by percutaneous puncture. 5Fr 10cm Terumo [place] sheath placed in right Femoral artery. [id number] : PM Time: 14:11LOC: 4 = Oriented but drowsy 02: PM Time: 14:11 Patient comfortable and pain free: Yes : PM 5Fr FL 4 catheter inserted over the wire [facility] : PM wire removed : PM LCA angiography performed in multiple views. 02:28 PM Recorded Pressure: Ao, VN=144, Condition=Condition 1 (Aorta) Ao 119/84/101 02:29 PM HR=94 bpm, UJXQ=021/84 mmhg, SpO2=95.0 %, Resp=14 B/min 02:31 PM Catheter removed 02:32 PM 5Fr FR 4 catheter inserted over the wire DN 02:32 PM wire removed 02:32 PM RCA angiography performed in multiple views. 02:32 PM Recorded Pressure: Ao, HR=88, Condition=Condition 1 (Aorta) Ao 118/85/101 02:33 PM Catheter removed 02:34 PM HR=92 bpm, RWAN=039/84 mmhg, SpO2=94.0 %, Resp=15 B/min 02:36 PM Coronary Dominance: right 02:38 PM Sheath exchanged for a 6 Fr 11 cm Cordis Ruma sheath [id number] 02:39 PM CA=142 bpm, AFEW=358/93 mmhg, SpO2=95.0 %, Resp=19 B/min 02:41 PM 6Fr XB LAD 3.5 Cordis guide catheter was used to cannulate the PCI vessel successfully. reused? No 02:43 PM Time: 14:26 Patient comfortable and pain free: Yes 02:43 PM Time: 14:26LOC: 4 = Oriented but drowsy 02:44 PM Time: 14:43 Angiomax 0.75mg/kg bolus: 10.5 ml Intravenous Given by Tiffanie Britton RT He pump 02:44 PM HR=90 bpm, TBCK=021/98 mmhg, SpO2=95.0 %, Resp=26 B/min 02:45 PM Time: 14:44 Angiomax 1.75mg/kg/hr: 25.2 ml Intravenous Given by Sebastien Brittoni RT He pump 02:45 PM .014 Prowater 180cm guide wire across target lesion- successful. reused? No 02:47 PM Inflation device was opened. 02:48 PM 3.5mm x 8mm Synergy drug-eluting stent across target lesion- successful Lot #[id number] 02:48 PM Time: 14:48 Versed 1 mg Intravenous Given by Geoffrey Washburn RN 02:48 PM Time: 14:48 Fentanyl 25 mcg Intravenous Given by Geoffrey Washburn RN 02:49 PM HR=94 bpm, QSHT=466/94 mmhg, SpO2=94.0 %, Resp=42 B/min 02:49 PM Stent deployed @ 12 uriel for 30 seconds [email or web address] 02:50 PM Stent delivery system removed intact. kkall 02:50 PM Time: 14:50 Nitroglycerin 200 mcg Intracoronary Given by Jocy Hurtado MD, FACC kkallner 02:50 PM Lesion found in Proximal LAD. Pre Stenosis: 95 Pre ROXANNE Flow: 3: Complete and Brisk Flow/Perfusion kkallner 02:52 PM catheter and wire removed kkallner 02:53 PM Bolus angiogram of right Femoral complete: 4 ml/sec for a total of 7 mls kkallner 02:54 PM HR=91 bpm, IFDH=581/84 mmhg, SpO2=90.0 %, Resp=18 B/min 02:54 PM Procedure completed at 14:54 [email or web address] 02:54 PM Did you address ROXANNE flow and Dominance? Yes [email or web address] 02:56 PM Sign out completed: Radiation Dose 349.25 mGy Fluoro Time: 4.4 Isovue 370 - 200ml contrast 105 ml given by Jocy Hurtado MD, FAC. Complications: NoneCardiac Rehab Consult needed: NoConfirmed administered medications: Yes kkallner 02:56 PM Isovue 370 - 200ml,1 Bottle(s) used. kkallner 02:56 PM Sheath left in place to be pulled on floor/holding area kkallner 02:57 PM Estimated Blood Loss: minimal kkallner 02:57 PM Post ECG NSR kkallner 02:57 PM Post Blood Pressure 134/84 kkallner 02:57 PM 14:57 Post Pulses Bilateral DP & PT 1+ kkallner 02:57 PM Information taught Cardiac Cath and PCI kkall 02:58 PM Education needs Procedure, Plan of Care, and Responsibilities of Patient in Care kkall:58 PM Learning barriers :None kkallner :58 PM Education Methods Verbal kkall:58 PM Time: 14:43 Patient comfortable and pain free: Yes kk:58 PM Time: 14:43LOC: 4 = Oriented but drowsy kkallner 02:58 PM Education evaluation Able to repeat information kkall:58 PM Site status No bleeding/hematoma - Rt Groin as reported by Tracie Andujar RT (R) at 14:58 kkallner 02:58 PM Opsite applied kkallner 03:00 PM Report given to Mena BAKER Pt taken to Holding room Room #3. 14:58 kkallner 03:00 PM Plavix, Effient or Brilinta given Yes kkallner 03:00 PM Delay to floor No kkallner 03:00 PM Patient out of room: 15:00 kkallner 03:00 PM Family placed in consult room. kkallner 03:00 PM Complications: None kkallner 03:00 PM Fluoro Time: 4.4 kkallner 03:00 PM Isovue 370 - 200ml contrast 105 ml given by jocy hurtado. kkallner 03:00 PM Radiation Dose 349.25 mGy kkallner 03:03 PM Lesion found in Mid LAD. Pre Stenosis: 30 Pre ROXANNE Flow: kkallner 03:03 PM Lesion found in 1st Diagonal. Pre Stenosis: 25 Pre ROXANNE Flow: kkallner 03:04 PM Lesion found in Proximal Circumflex. Pre Stenosis: 20 Pre ROXANNE Flow: kkallner 03:04 PM Lesion found in Ramus. Pre Stenosis: 30 Pre ROXANNE Flow: kkallner 03:04 PM Lesion found in Proximal RCA. Pre Stenosis: 30 Pre ROXANNE Flow: kkallner 03:04 PM Lesion found in Mid RCA. Pre Stenosis: 30 Pre ROXANNE Flow: kkallner 03:05 PM Lesion found in Distal RCA. Pre Stenosis: 20 Pre ROXANNE Flow: kkallner 03:05 PM Left Main Coronary Artery with 0% stenosis kkallner 03:05 PM Proximal Left Anterior Descending Coronary Artery with 95% stenosis. If graft is supplying this territory, 0 % stenosis. kkallner 03:05 PM Mid/Distal Left Anterior Descending Coronary Artery and diagonal branches with 30% stenosis. If graft is supplying this area, 0 % stenosis kkallner 03:05 PM Circumflex, Obtuse Marginal, Left Posterior Descending, and Left Posterolateral Coronary Arteries with 20 % stenosis. If graft is supplying this area, 0 % stenosis kkallner 03:05 PM Right Coronary, Right Posterior Descending Arteries with Right Posterolateral and Acute Marginal branches with 30 % stenosis. If graft is supplying this area, 0 % stenosis kkallner 03:05 PM Ramus with 30% stenosis. If graft is supplying this area, 0 % stenosis kkallner 03:09 PM Time: 15:09 Brilinta 180 mg Orally Given by Geoffrey Washburn RN [email or web address] 03:[address] Kate Hurtado in to see patient and speak with family. [email or web address] 05:30 PM Time: 18:21 Tylenol 650 mg Orally Given by Ariela Buchanan RN [email or web address] 06:17 PM Arterial sheath pulled using manual compression and V+ Pad for 20 minutes by Geoffrey Washburn RN kkcourt 06:17 PM Site status No bleeding/hematoma - Rt Groin as reported by Geoffrey Washburn RN at 18:17 [email or web address] 06:17 PM Opsite applied kk 06:18 PM Report given to Della BAKER Pt taken to 2A Room #[facility]. 18:[facility] Complications Complication None None Hemodynamics Pressures Site Systolic/A Wave Diastolic/V Wave Mean AO 119 84 101 AO 118 85 101 Post Procedure Information Blood Pressure: 134/84 mmHg Rhythm: NSR Post procedural instructions were given Site Checks Time Location Status Staff Sheath In? Note 02:58 PM Rt Groin No bleeding/hematoma Tracie Andujar RT (R) Yes 03:08 PM No bleeding/ No Hematoma Mena Rodriguez RT (R) Yes 03:17 PM Rt Groin No bleeding/ No Hematoma Mena Rodriguez RT (R) 03:30 PM Rt Groin No bleeding/ No Hematoma Baljit Taylor RN 03:45 PM Rt Groin No bleeding/ No Hematoma Baljit Taylor RN 04:00 PM Rt Groin No bleeding/ No Hematoma Baljit Taylor RN 04:15 PM Rt Groin No bleeding/ No Hematoma Baljit Taylor RN 04:32 PM Rt Groin No bleeding/ No Hematoma Mena Rodriguez RT (R) 04:45 PM Rt Groin No bleeding/ No Hematoma Nkechi Prince RN 05:00 PM Rt Groin No bleeding/ No Hematoma Nkechi Prince RN 05:15 PM Rt Groin No bleeding/ No Hematoma Tiffanie Britton RT Yes 06:17 PM Rt Groin No bleeding/hematoma Geoffrey Washburn RN Pulses Time Site Pre-Procedure Post-Procedure Note Bilateral DP & PT 1+ Bilateral radial 2+ 2:57:00 PM Bilateral DP & PT 1+ 09/13/2017 3:09:00 PM Bilateral DP & PT 1+ 09/13/2017 3:17:00 PM Bilateral DP & PT 1+ 09/13/2017 3:30:00 PM Bilateral DP & PT 1+ 09/13/2017 3:45:00 PM Bilateral DP & PT 1+ 09/13/2017 4:00:00 PM Bilateral DP & PT 1+ 09/13/2017 4:32:00 PM Bilateral DP & PT 1+ 09/13/2017 5:15:00 PM Bilateral DP & PT 1+ Updated by RT Beverly (R) on 09/13/2017 6:23:20 PM electronically signed on 09/13/2017 6:24:04 PM with status of Final
[2017-09-13] MEDS: Aspirin 81 MG TAB.CHEW PO SCH (18:41)
[2017-09-14 05:49] LABS: Basophils % 0.5 %; Eosinophils # 0.2 K/mcL (0.0-0.6); Eosinophils % 2.8 %; Hematocrit 40.4 % (35.3-44.9); Hemoglobin 13.2 g/dL (11.5-15.4); Immature Granulocytes % 0.3 % (0-4); Lymphocytes # 1.1 K/mcL (0.6-4.6); Lymphocytes % 14.5 %; Mean Corpuscular HGB Conc 32.7 g/dL (31.6-35.5); Mean Corpuscular Hemoglobin 28.9 pg (28.0-33.3); Mean Corpuscular Volume 88.4 fL (83.0-100.0); Mean Platelet Volume 10.8 fL (9.4-12.4); Monocytes # 0.5 K/mcL (0.0-1.3); Monocytes % 5.9 %; Neutrophils # 5.9 K/mcL (1.6-8.9); Platelet Count 170 K/mcL (140-400); Red Blood Count 4.57 M/mcL (3.82-4.97); Red Cell Distribution Width 13.9 % (11.5-14.5)
[2017-09-14 05:55] LABS: INR 1.1; Prothrombin Time 11.6 Seconds (9.4-12.1)
[2017-09-14 06:07] LABS: Potassium 4.1 mEq/L (3.5-5.1)
[2017-09-14] MEDS: Aspirin 81 MG TAB.CHEW PO SCH (09:34)
[2017-09-14] MEDS: Lisinopril 20 MG TABLET PO SCH (09:34)
--- NOTE | 2017-09-14 10:03 | Cardiology Progress Note ---
Date of Encounter: 09/14/17 Time of Encounter: 08:00 Assessment and Plan (1) Abnormal stress test Current Visit: Yes Status: Acute Per cardiology: -Had abnormal stress test. -Unofficial report reviewed with PANFILO to proximal LAD. -On asa, plavix, beta nanci. -Denies chest pain. -Right groin access site without hematoma or ecchymosis. Groin site management education reviewed with patient. -Educated on importance of dual anti-platelet therapy uninterrupted for at least one year. Patient states understanding. -Of note, is on triple therapy with asa, plavix, and coumadin. Can consider discontinuation of ASA at one month post PCI. WIll re-evaluate in outpatient setting. Patient educated to monitor for any signs/symptoms of bleeding and to call cardiology. -Will start statin. -Cardiology will sign off and will follow in outpatient setting. Follow up set. (2) Chest pain Current Visit: Yes Status: Acute Per Cardiolpogy: -S/p PCI yesterday. -Denies chest pain. -Will continue to monitor in outpatient setting. Qualifiers: Chest pain type: unspecified Qualified Code(s): R07.9 - Chest pain, unspecified (3) A-fib Current Visit: Yes Status: Acute Per Cardiology: -Appears to be new onset. -Average heart rate 88 on telemetry, remains A. fib. -On Lopressor to 75 mg by mouth twice a day. -[id number] score 5(age, gender, HTN, vascular disease) Resumed coumadin. Of note, now on triple therapy. -Target INR 2.0-3.0, now indication for bridging. -TTE with LVEF 55%, severely dilated LA, severely sclerotic AV leaflets, mild- moderate MR, mild PH, no segmental wall motion abnormalities. -Will send referral to [facility]. -Cardiology will follow INRs until seen by [facility]. -Will continue to monitor in outpatient setting. Qualifiers: Atrial fibrillation type: unspecified Qualified Code(s): I48.91 - Unspecified atrial fibrillation (4) OSKAR (acute kidney injury) Current Visit: Yes Status: Acute Per Cardiology: -Creatinine improved today 1.11. Discussion w patient/family: The assessment and plan as outlined above was discussed with the patient who expressed understanding and agreement. All questions were answered. Thank you for involving us in the care of your patient. Please call with any questions. Discussed and reviewed with . Subjective Principal diagnosis: CP, afib Interval history: Patient is s/p LHC. Denies issues walking or using right leg. Denies chest pain overnight. Denies bleeding or blood loss. Objective Vital Signs, Last 4 Hours Temp Pulse Resp BP Pulse Ox 09/14/17 09:36 98.6 F 97 17 134/67 95 09/14/17 07:00 98.6 F 97 17 134/67 95 General: Conversant, No Apparent Distress HEENT: Atraumatic, Normocephaly, Mucus Membranes Moist Neck: No JVD, Normal carotid pulses Cardiac: Normal S1 and S2, No Murmur, Other (Irregularly irregular ) Lungs: Normal Breath Sounds, No Wheeze, Rales, Rhonchi Neuro: Alert and responsive, No focal deficits noted Abdomen: Soft, Non-Tender Skin: No rashes noted on visualized skin, Other (Right groin access site without hematoma or ecchymosis. ) Musculoskeletal: No Chest Wall Tenderness Extremities: No Clubbing, No Cyanosis, No Edema, Normal Pulses Results 09/14/17 05:25 09/14/17 05:25 Lab Results Active Medications Acetaminophen (Tylenol) 650 mg PO Q6HR PRN PRN Reason: Mild Pain/Fever Stop: 03/12/18 16:43 Last Admin: 09/12/17 07:45 Dose: 650 mg Aspirin (Aspirin) 81 mg PO DAILY [facility] Stop: 03/15/18 15:16 Last Admin: 09/14/17 09:34 Dose: 81 mg Calcium Polycarbophil (Fibercon) 625 mg PO BID [facility] Stop: 03/12/18 21:01 Last Admin: 09/14/17 09:33 Dose: 625 mg Clopidogrel Bisulfate (Plavix) 75 mg PO DAILY [facility] Stop: 03/16/18 09:01 Last Admin: 09/14/17 09:34 Dose: 75 mg Lisinopril (Zestril) 10 mg PO DAILY [facility] PRN Reason: Protocol Stop: 03/14/18 09:01 Last Admin: 09/14/17 09:34 Dose: 10 mg Metoprolol Tartrate (Lopressor) 75 mg PO BID [facility] Stop: 03/14/18 21:01 Last Admin: 09/14/17 09:34 Dose: 75 mg Naloxone HCl (Narcan) 0.4 mg IVP Q2MIN PRN PRN Reason: SEE COMMENTS Stop: 03/12/18 16:43 Omeprazole (Prilosec) 20 mg PO DAILY@0630 EVELY[facility] PRN Reason: Protocol Stop: 03/13/18 16:06 Last Admin: 09/14/17 05:58 Dose: 20 mg Tramadol HCl (Ultram) 50 mg PO Q6HR PRN PRN Reason: Moderate Pain Stop: 03/12/18 16:43 Warfarin Sodium (Coumadin Perpt) 1 each PO DAILY@1800 PRN PRN Reason: SEE COMMENTS Stop: 03/16/18 18:01 Laboratory Tests 09/13/17 09/13/17 09/14/17 05:25 05:25 05:25 Hgb 12.0 13.2 Creatinine 1.23 H Troponin I 09/14/17 09/14/17 05:25 05:25 Hgb Creatinine 1.11 Troponin I < 0.03 - Imaging and Cardiology Chest Xray: report reviewed Stress Test: report reviewed Echo: report reviewed Cardiac cath: report reviewed - EKG Interpretation EKG results cardiology: other (Telemetry reviewed with average HR previous 12 hours noted to be 88, a.fib. PVCs, couplets, 4 beat run of non-sustained VT.) Consult Discharge Plan - Plan Referrals: NONE,PCP [Primary Care Provider] -
--- NOTE | 2017-09-14 10:38 | Discharge Summary ---
Orders not resulted at time of discharge: Pending orders 09/13/17 15:04 ECG 12 lead ECG [ECG] Stat 09/14/17 06:00 ECG 12 lead ECG [ECG] AM 0600 09/15/17 04:00 PT/INR [Prothrombin Time INR] [COAG] AM 0400 09/16/17 04:00 PT/INR [Prothrombin Time INR] [COAG] AM 0400 09/17/17 04:00 PT/INR [Prothrombin Time INR] [COAG] AM 0400 Date of Encounter: 09/14/17 Time of Encounter: 10:37 - Discharge Diagnosis (1) Chest pain Priority: Primary Status: Acute Qualifiers: Chest pain type: unspecified Qualified Code(s): R07.9 - Chest pain, unspecified (2) A-fib Priority: Primary Status: Acute Qualifiers: Atrial fibrillation type: unspecified Qualified Code(s): I48.91 - Unspecified atrial fibrillation (3) CKD (chronic kidney disease) stage 3, GFR 30-59 ml/min Priority: Secondary Status: Acute (4) Diverticulosis Priority: Secondary Status: Chronic Qualifiers: Diverticulosis site: unspecified location Diverticulosis bleeding: diverticulosis without bleeding Qualified Code(s): K57.90 - Diverticulosis of intestine, part unspecified, without perforation or abscess without bleeding (5) Hypertension Priority: Secondary Status: Chronic Qualifiers: Hypertension type: essential hypertension Qualified Code(s): I10 - Essential (primary) hypertension Hospital course: Ms. Puente is a 82 year old female with past medical history of chronic kidney disease, hypertension and arthritis presented to the emergency department complaining of chest pain that since 3 AM on day of admission. It woke her up from sleep. Radiates to the back given 324 mg of aspirin prior to arrival. She was given 2 nitroglycerin at ED which almost completely relieved the pain. In the ED, her vital signs were stable besides tachycardia. EKG revealed atrial fibrillation with rapid ventricular response and heart rate was around 110-130. Patient did report a remote history of atrial fib about 9 years ago but that was resolved spontaneously. Cardiology were consulted on admission and recommended anticoagulation. Given her age and chronic kidney disease history she was started on Coumadin. Rate control was achieved with oral Lopressor. Echocardiogram was ordered and a stress test was done which came back abnormal. Echo came back with an ejection fraction of 55% with indeterminate diastolic function. 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 The patient was recommended dual antiplatelet therapy with aspirin and Plavix. She was also recommended Coumadin which she was discharged on. Cardiology will possibly plan on stopping the aspirin after 1 month according to the last note. The patient does have risk factors for bleeding as she said that she had mild sternal hemorrhoid bleeding 2 weeks prior to this admission. She was stable for discharge on 09/14. She was given a prescription for aspirin , Plavix, atorvastatin, metoprolol, warfarin, and Prilosec. He is resumed on amlodipine. - Time Spent with Patient Total time spent providing and/or coordinating discharge services: Greater than 30 minutes - Discharge Medications Prescriptions: Aspirin 81 mg PO DAILY #30 tab.chew Atorvastatin [Lipitor] 40 mg PO HS #30 tablet Clopidogrel [Plavix] 75 mg PO DAILY #30 tablet Lisinopril [Zestril] 10 mg PO DAILY #30 tablet Metoprolol [Lopressor] 75 mg PO BID #60 tablet Omeprazole [PriLOSEC] 20 mg PO DAILY@0630 #30 capsule. Warfarin [Coumadin] 3 mg PO DAILY #60 tablet Home Medications: Amlodipine Besylate/Benazepril [Lotrel 10-20 mg Capsule] 1 cap PO DAILY [History] Metoprolol [Lopressor] 25 mg PO BID 09/10/17 [History] Aspirin 81 mg PO DAILY #30 tab.chew 09/14/17 [Rx] Atorvastatin [Lipitor] 40 mg PO HS #30 tablet 09/14/17 [Rx] Clopidogrel [Plavix] 75 mg PO DAILY #30 tablet 09/14/17 [Rx] Lisinopril [Zestril] 10 mg PO DAILY #30 tablet 09/14/17 [Rx] Metoprolol [Lopressor] 75 mg PO BID #60 tablet 09/14/17 [Rx] Omeprazole [PriLOSEC] 20 mg PO DAILY@0630 #30 capsule. 09/14/17 [Rx] Warfarin [Coumadin] 3 mg PO DAILY #60 tablet 09/14/17 [Rx] Allergies/Adverse Reactions: 3 Allergy/AdvReac Type Severity Reaction Status Date / Time Sulfa (Sulfonamide Allergy Hives Verified 12/13/15 20:46 Antibiotics) Date of admission: 09/12/17 18:10 Primary care physician: PCP NONE Consults: 09/13/17 15:04 Consult to Cardiac Rehabilitation-Phase1 [CONS] Routine Comment: Reason for Consult: post op PCI Call Completed: Yes - Constitutional Vitals: Temp Pulse Resp BP Pulse Ox 98.6 F 97 17 134/67 95 09/14/17 09:36 09/14/17 09:36 09/14/17 09:36 09/14/17 09:36 09/14/17 09:36 General appearance: Present: A&O X 3, no acute distress, answers questions appropriately Exam: GEN: NAD CVS: RRR. S1, S2, No m/r/g RESP: CTAB ABD: Soft, NT, ND, +BS EXT: No edema. 2+ DP. No rashes NEURO: Nonfocal - Patient Status Disposition: Home, Self-Care Condition: Fair Overall status at discharge: patient is progressing back to baseline - Discharge Instructions Instructions: Warfarin (By mouth), Atrial Fibrillation (DC) Follow Up With: NONE,PCP [Primary Care Provider] - Aubrey Lehman DO [Non-Partnered Physician] - (Call the Office.) Josiah Coello [Partnered Physician] - (1 week) - Diet and Activity Activity: increase activity as tolerated
[2017-09-14 10:40] VITALS: BP 128/85
[2017-09-14] MEDS ORDERED: Warfarin perPT PO PRN (18:00)
[2017-09-14] MEDS ORDERED: *HR* Warfarin 3 MG TABLET PO ONE (18:00)
[2017-09-14] MEDS ORDERED: *HR* Enoxaparin 80 MG/0.8 ML SYRINGE SQ SCH (18:00)
--- NOTE | 2017-09-14 18:46 | Electrocardiograph Report ---
[address] [place] [address] Test Date: 2017-09-10 Pat Name: Dayana Puente Department: 104 Room: 2A Gender: F [employer]: : [id number] Requested By: Maria Guerrero Order Number: [id number] Reading MD: Kehinde Sutton MD Measurements Intervals [place] Rate: 96 P: CO: 0 QRS: 44 QRSD: 93 T: 14 QT: 369 QTc: 423 Interpretive Statements ATRIAL FIBRILLATION VOLTAGE CRITERIA FOR LVH Electronically Signed On 09-14-2017 18:44:55 EDT by Kehinde Sutton MD
== END 2017-09-14 12:43 | disposition home or self-care (01) | DRG 247 ==
LOC: 2ANU 12:00 → EMEROO 12:00 → 2ANU 16:50
PROVIDERS: ADMIT Student in an Organized Health Care Education/Training Program; ATTEND Family Medicine

== ENCOUNTER 2020-10-30 21:34 | Observation (INO) ==
[2020-10-30 22:23] LABS: Basophils % 0.6 %; Eosinophils # 0.1 K/mcL (0.0-0.6); Eosinophils % 0.7 %; Hematocrit 35.1 % (35.3-44.9); Hemoglobin 10.8 g/dL (11.5-15.4); Immature Granulocytes % 0.3 % (0-4); Lymphocytes # 0.5 K/mcL (0.6-4.6); Lymphocytes % 6.2 %; Mean Corpuscular HGB Conc 30.8 g/dL (31.6-35.5); Mean Corpuscular Hemoglobin 29.3 pg (28.0-33.3); Mean Corpuscular Volume 95.4 fL (83.0-100.0); Mean Platelet Volume 10.6 fL (9.4-12.4); Monocytes # 0.4 K/mcL (0.0-1.3); Monocytes % 5.8 %; Neutrophils # 6.3 K/mcL (1.6-8.9); Platelet Count 141 K/mcL (140-400); Red Blood Count 3.68 M/mcL (3.82-4.97); Red Cell Distribution Width 13.8 % (11.5-14.5); Segmented Neutrophils % 86.4 %; White Blood Count 7.2 K/mcL (4.3-11.1)
[2020-10-30 22:45] LABS: BUN/Creatinine Ratio 14 (6-26); Blood Urea Nitrogen 49 mg/dL (8-23); Calcium 8.9 mg/dL (8.6-10.3); Carbon Dioxide 15 mEq/L (23-29); Chloride 112 mEq/L (98-107); Creatine Kinase 49 Units/L (30-223); Glucose 126 mg/dL (70-105); Magnesium 1.7 mg/dL (1.6-2.6); Osmolality,Calculated 303 (280-300); Potassium 3.8 mEq/L (3.5-5.1); Sodium 139 mEq/L (136-145); eGFR For African Americans 16 (> 60); eGFR For Non-African Americans 13 (> 60)
[2020-10-30 22:46] LABS: Troponin I < 0.03 ng/mL (< 0.04)
[2020-10-30 22:58] LABS: Bacteria,Urine Few per hpf (None-Few); Bilirubin,Urine Negative (Negative); Blood,Urine Moderate (Negative); Clarity,Urine Turbid (Clear); Color,Urine Light-Yellow (Yellow); Glucose,Urine (UA) Normal (Normal); Ketones,Urine Negative (Negative); Leukocyte Esterase,Urine Large (Negative); Mucus,Urine Few per lpf (None-Few); Nitrite,Urine Negative (Negative); Protein,Urine 30 mg/dL (Neg-Trace); RBC,Urine 15-30 per hpf (0-3); Specific Gravity,Urine 1.015 (1.010-1.025); Squamous Epithelial Cell,Urine Moderate per hpf (None-Few); Urobilinogen,Urine Normal (Normal); WBC,Urine 50-100 per hpf (0-3)
[2020-10-30] MEDS ORDERED: 0.9 % Sodium Chloride 1,000 ML IVC ONE (23:24)
[2020-10-30] MEDS ORDERED: cefTRIAXone 1,000 MG in 0.9 % Sodium Chloride Mini Bag 100 ML IVPB ONE (23:49)
[2020-10-31] MEDS ORDERED: Naloxone 0.4 MG/ML INJ IVP PRN (01:44)
[2020-10-31] MEDS ORDERED: Acetaminophen 325 MG TABLET PO PRN (01:44)
[2020-10-31] MEDS ORDERED: Ondansetron 4 MG/2 ML VIAL IVP PRN (01:44)
[2020-10-31] MEDS ORDERED: 0.9 % Sodium Chloride 1,000 ML IVC SCH (01:45)
[2020-10-31] MEDS ORDERED: Perflutren Lipid Microsphere 1.3 ML in 0.9 % Sodium Chloride 8.7 ML IVP PRN (01:47)
[2020-10-31] MEDS ORDERED: Aspirin 325 MG TABLET PO ONE (03:41)
[2020-10-31 04:18] LABS: Hematocrit 30.8 % (35.3-44.9); Hemoglobin 9.3 g/dL (11.5-15.4); INR 2.4; Mean Corpuscular HGB Conc 30.2 g/dL (31.6-35.5); Mean Corpuscular Hemoglobin 28.7 pg (28.0-33.3); Mean Corpuscular Volume 95.1 fL (83.0-100.0); Mean Platelet Volume 10.5 fL (9.4-12.4); Platelet Count 134 K/mcL (140-400); Prothrombin Time 26.9 Seconds (9.4-12.1); Red Blood Count 3.24 M/mcL (3.82-4.97); Red Cell Distribution Width 14.1 % (11.5-14.5); White Blood Count 5.8 K/mcL (4.3-11.1)
[2020-10-31 04:30] LABS: BUN/Creatinine Ratio 14 (6-26); Blood Urea Nitrogen 44 mg/dL (8-23); Calcium 8.1 mg/dL (8.6-10.3); Carbon Dioxide 16 mEq/L (23-29); Chloride 115 mEq/L (98-107); Glucose 104 mg/dL (70-105); Osmolality,Calculated 301 (280-300); Potassium 3.8 mEq/L (3.5-5.1); Sodium 140 mEq/L (136-145); Troponin I < 0.03 ng/mL (< 0.04); eGFR For African Americans 17 (> 60); eGFR For Non-African Americans 14 (> 60)
[2020-10-31] MEDS: Aspirin 81 MG TAB.CHEW PO SCH (08:02)
[2020-10-31] MEDS: lisinopriL 20 MG TABLET PO SCH (08:02)
[2020-10-31] MEDS ORDERED: cefTRIAXone 1,000 MG in 0.9 % Sodium Chloride Mini Bag 100 ML IVPB SCH (18:00)
[2020-10-31] MEDS ORDERED: *HR* Warfarin 2 MG TABLET PO ONE (18:00)
[2020-10-31] MEDS ORDERED: Warfarin perPT PO PRN (18:00)
[2020-11-01 01:33] LABS: Hemoglobin 9.2 g/dL (11.5-15.4); Mean Corpuscular HGB Conc 29.7 g/dL (31.6-35.5); Mean Corpuscular Hemoglobin 28.3 pg (28.0-33.3); Mean Corpuscular Volume 95.4 fL (83.0-100.0); Mean Platelet Volume 11.1 fL (9.4-12.4); Platelet Count 124 K/mcL (140-400); Red Blood Count 3.25 M/mcL (3.82-4.97); Red Cell Distribution Width 14.1 % (11.5-14.5)
[2020-11-01 01:41] LABS: INR 2.4; Prothrombin Time 27.1 Seconds (9.4-12.1)
[2020-11-01 01:53] LABS: Calcium 8.3 mg/dL (8.6-10.3); Potassium 3.6 mEq/L (3.5-5.1)
[2020-11-01 07:39] VITALS: BP 151/83
[2020-11-01] MEDS: Aspirin 81 MG TAB.CHEW PO SCH (07:39)
[2020-11-01] MEDS: lisinopriL 20 MG TABLET PO SCH (07:39)
[2020-11-01] MEDS ORDERED: amLODIPine 5 MG TABLET PO SCH (09:00)
[2020-11-01] MEDS ORDERED: Cyanocobalamin (B-12) 1,000 MCG TABLET PO SCH (09:00)
[2020-11-01] MEDS ORDERED: *HR* Warfarin 2 MG TABLET PO ONE (18:00)
[2020-11-02 08:44] LABS: Acinetobacter baumannii by PCR Not Detected (Not Detect); Candida albicans by PCR Not Detected (Not Detect); Candida glabrata by PCR Not Detected (Not Detect); Candida krusei by PCR Not Detected (Not Detect); Candida parapsilosis by PCR Not Detected (Not Detect); Candida tropicalis by PCR Not Detected (Not Detect); Enterobacter cloacae Cmplx PCR Not Detected (Not Detect); Enterobacteriaceae by PCR Not Detected (Not Detect); Enterococcus by PCR Not Detected (Not Detect); Escherichia coli by PCR Not Detected (Not Detect); Klebsiella oxytoca by PCR Not Detected (Not Detect); Klebsiella pneumoniae by PCR Not Detected (Not Detect); Proteus by PCR Not Detected (Not Detect); Pseudomonas aeruginosa by PCR Not Detected (Not Detect); Serratia marcescens by PCR Not Detected (Not Detect); Staphylococcus aureus by PCR Not Detected (Not Detect); Staphylococcus by PCR DETECTED (Not Detect); Streptococcus agalactiae(B)PCR Not Detected (Not Detect); Streptococcus by PCR Not Detected (Not Detect); Streptococcus pneumoniae PCR Not Detected (Not Detect); Streptococcus pyogenes (A) PCR Not Detected (Not Detect); mecA Methicillin-Resist Gene Not Detected (Not Detect)
[2020-11-02] MEDS ORDERED: Cefdinir 300 MG CAPSULE PO SCH (09:00)
== END 2020-11-01 12:33 | disposition home or self-care (01) ==
LOC: 2ANU 21:34 → EMEROOARM 21:34 → SUATTDRO 10-31 01:09 → 2ANU 10-31 01:14
PROVIDERS: ADMIT Internal Medicine; ATTEND Family Medicine

== ENCOUNTER 2020-12-18 00:22 | Inpatient (IN) ==
[2020-12-18] MEDS ORDERED: 0.9 % Sodium Chloride 500 ML IVC ONE (00:43)
[2020-12-18] MEDS ORDERED: Magnesium Sulfate 1 GM/102 ML PIGGYBACK IVPB ONE (00:44)
[2020-12-18] MEDS ORDERED: 0.9 % Sodium Chloride 1,000 ML IVC ONE (00:54)
[2020-12-18 01:21] LABS: Basophils % 0.2 %; Eosinophils # 0.3 K/mcL (0.0-0.6); Hemoglobin 10.2 g/dL (11.5-15.4); Immature Granulocytes % 0.6 % (0-4); Lymphocytes # 0.3 K/mcL (0.6-4.6); Lymphocytes % 4.1 %; Mean Corpuscular HGB Conc 30.9 g/dL (31.6-35.5); Mean Corpuscular Hemoglobin 29.6 pg (28.0-33.3); Mean Corpuscular Volume 95.7 fL (83.0-100.0); Mean Platelet Volume 11.1 fL (9.4-12.4); Monocytes # 0.3 K/mcL (0.0-1.3); Monocytes % 3.4 %; Neutrophils # 7.3 K/mcL (1.6-8.9); Platelet Count 104 K/mcL (140-400); Red Blood Count 3.45 M/mcL (3.82-4.97); Red Cell Distribution Width 13.7 % (11.5-14.5); Segmented Neutrophils % 88.7 %; White Blood Count 8.3 K/mcL (4.3-11.1)
[2020-12-18 01:31] LABS: INR 2.8; Prothrombin Time 31.1 Seconds (9.4-12.1)
[2020-12-18 01:34] LABS: Activated Partial Thrombo Time 28.2 Seconds (26.0-36.0)
[2020-12-18] MEDS: *HR* Metoprolol 5 MG/5 ML VIAL IVP PRN ×3 (01:55→03:00)
[2020-12-18 01:59] LABS: Calcium 9.4 mg/dL (8.6-10.3); Magnesium 1.6 mg/dL (1.6-2.6); Potassium 3.4 mEq/L (3.5-5.1); Troponin I 0.15 ng/mL (< 0.04)
[2020-12-18] MEDS ORDERED: Aspirin 81 MG TAB.CHEW PO ONE (02:12)
[2020-12-18] MEDS ORDERED: cefTRIAXone 1,000 MG in 0.9 % Sodium Chloride Mini Bag 100 ML IVPB ONE (02:12)
[2020-12-18 02:31] LABS: Bacteria,Urine Many per hpf (None-Few); Bilirubin,Urine Negative (Negative); Blood,Urine Large (Negative); Clarity,Urine Turbid (Clear); Color,Urine Yellow (Yellow); Glucose,Urine (UA) Normal (Normal); Ketones,Urine Trace mg/dL (Negative); Leukocyte Esterase,Urine Large (Negative); Mucus,Urine Few per lpf (None-Few); Nitrite,Urine Negative (Negative); PH,Urine 5.5 pH Units (5.0-8.0); Protein,Urine 70 mg/dL (Neg-Trace); RBC,Urine 50-100 per hpf (0-3); Specific Gravity,Urine 1.011 (1.010-1.025); Urobilinogen,Urine Normal (Normal); WBC,Urine TNTC per hpf (0-3)
[2020-12-18] MEDS ORDERED: Naloxone 0.4 MG/ML INJ IVP PRN (05:27)
[2020-12-18] MEDS ORDERED: Ondansetron 4 MG/2 ML VIAL IVP PRN (05:27)
[2020-12-18] MEDS ORDERED: Melatonin 3 MG TABLET PO PRN (05:27)
[2020-12-18] MEDS ORDERED: Potassium Chloride 40 MEQ, Lidocaine 1% 2 ML in 0.9 % Sodium Chloride 500 ML IVPB ONE (06:35)
[2020-12-18 07:29] LABS: Troponin I 0.17 ng/mL (< 0.04)
[2020-12-18 07:41] LABS: Thyroid Stimulating Hormone 0.764 mcIU/mL (0.340-5.600)
[2020-12-18] MEDS: amLODIPine 5 MG TABLET PO SCH (11:45)
[2020-12-18 16:55] LABS: Acinetobacter baumannii by PCR Not Detected (Not Detect); Enterococcus by PCR Not Detected (Not Detect); Staphylococcus aureus by PCR Not Detected (Not Detect); Staphylococcus by PCR Not Detected (Not Detect); Streptococcus agalactiae(B)PCR Not Detected (Not Detect); Streptococcus by PCR Not Detected (Not Detect); Streptococcus pneumoniae PCR Not Detected (Not Detect); Streptococcus pyogenes (A) PCR Not Detected (Not Detect)
[2020-12-18 16:56] LABS: Candida albicans by PCR Not Detected (Not Detect); Candida glabrata by PCR Not Detected (Not Detect); Enterobacter cloacae Cmplx PCR Not Detected (Not Detect); Enterobacteriaceae by PCR DETECTED (Not Detect); Escherichia coli by PCR DETECTED (Not Detect); Klebsiella oxytoca by PCR Not Detected (Not Detect); Klebsiella pneumoniae by PCR Not Detected (Not Detect); Proteus by PCR Not Detected (Not Detect); Pseudomonas aeruginosa by PCR Not Detected (Not Detect); Serratia marcescens by PCR Not Detected (Not Detect)
[2020-12-18 16:57] LABS: Candida krusei by PCR Not Detected (Not Detect); Candida parapsilosis by PCR Not Detected (Not Detect); Candida tropicalis by PCR Not Detected (Not Detect)
[2020-12-18] MEDS ORDERED: *HR* Warfarin 2 MG TABLET PO ONE (18:00)
[2020-12-18] MEDS ORDERED: Warfarin perPT PO PRN (18:00)
[2020-12-18 18:19] LABS: Calcium 8.3 mg/dL (8.6-10.3); Potassium 4.3 mEq/L (3.5-5.1)
[2020-12-19] MEDS ORDERED: cefTRIAXone 1,000 MG in Water for inj. (sterile) 10 ML IVP SCH (02:00)
[2020-12-19 02:32] LABS: Basophils % 0.1 %; Eosinophils # 0.1 K/mcL (0.0-0.6); Eosinophils % 0.4 %; Hematocrit 27.6 % (35.3-44.9); Hemoglobin 8.3 g/dL (11.5-15.4); Immature Granulocytes % 0.8 % (0-4); Lymphocytes # 0.9 K/mcL (0.6-4.6); Lymphocytes % 7.4 %; Mean Corpuscular HGB Conc 30.1 g/dL (31.6-35.5); Mean Corpuscular Hemoglobin 28.9 pg (28.0-33.3); Mean Corpuscular Volume 96.2 fL (83.0-100.0); Mean Platelet Volume 11.3 fL (9.4-12.4); Monocytes # 0.9 K/mcL (0.0-1.3); Monocytes % 7.9 %; Neutrophils # 9.9 K/mcL (1.6-8.9); Platelet Count 108 K/mcL (140-400); Red Blood Count 2.87 M/mcL (3.82-4.97); Red Cell Distribution Width 14.2 % (11.5-14.5); Segmented Neutrophils % 83.4 %; White Blood Count 11.9 K/mcL (4.3-11.1)
[2020-12-19 02:45] LABS: Calcium 8.2 mg/dL (8.6-10.3)
[2020-12-19 03:03] LABS: INR 4.2
[2020-12-19 03:04] LABS: Prothrombin Time 46.6 Seconds (9.4-12.1)
[2020-12-19] MEDS: Cyanocobalamin (B-12) 1,000 MCG TABLET PO SCH (07:59)
[2020-12-19] MEDS: lisinopriL 20 MG TABLET PO SCH (07:59)
[2020-12-19] MEDS: Aspirin Enteric Coated 325 MG Tablet PO SCH (07:59)
[2020-12-19] MEDS: amLODIPine 5 MG TABLET PO SCH (08:00)
[2020-12-19 09:09] LABS: Hematocrit 30.1 % (35.3-44.9); Hemoglobin 9.1 g/dL (11.5-15.4)
[2020-12-19] MEDS: cefTRIAXone 2,000 MG in Water for inj. (sterile) 20 ML IVP SCH (15:45)
[2020-12-20 05:07] LABS: Basophils % 0.3 %; Eosinophils # 0.1 K/mcL (0.0-0.6); Eosinophils % 1.8 %; Hematocrit 27.5 % (35.3-44.9); Hemoglobin 8.5 g/dL (11.5-15.4); Immature Granulocytes % 0.4 % (0-4); Lymphocytes # 0.8 K/mcL (0.6-4.6); Lymphocytes % 10.2 %; Mean Corpuscular HGB Conc 30.9 g/dL (31.6-35.5); Mean Corpuscular Hemoglobin 29.8 pg (28.0-33.3); Mean Corpuscular Volume 96.5 fL (83.0-100.0); Monocytes # 0.7 K/mcL (0.0-1.3); Neutrophils # 5.8 K/mcL (1.6-8.9); Platelet Count 116 K/mcL (140-400); Red Blood Count 2.85 M/mcL (3.82-4.97); Red Cell Distribution Width 13.8 % (11.5-14.5); Segmented Neutrophils % 78.3 %; White Blood Count 7.4 K/mcL (4.3-11.1)
[2020-12-20 05:13] LABS: INR 4.2
[2020-12-20 05:16] LABS: Prothrombin Time 46.6 Seconds (9.4-12.1)
[2020-12-20 05:24] LABS: Calcium 8.3 mg/dL (8.6-10.3); Potassium 3.7 mEq/L (3.5-5.1)
[2020-12-20] MEDS: amLODIPine 5 MG TABLET PO SCH (08:46)
[2020-12-20] MEDS: Aspirin Enteric Coated 325 MG Tablet PO SCH (08:46)
[2020-12-20] MEDS: lisinopriL 20 MG TABLET PO SCH (08:46)
[2020-12-20] MEDS: Cyanocobalamin (B-12) 1,000 MCG TABLET PO SCH (08:47)
[2020-12-20] MEDS ORDERED: Ergocalciferol (VIT D2) 50,000 UNIT (1.25MG) CAP PO SCH (10:51)
[2020-12-20] MEDS: Lactobacillus 1 EACH CAP.SPRINK PO SCH ×2 (15:04→21:11)
[2020-12-20] MEDS: cefTRIAXone 2,000 MG in Water for inj. (sterile) 20 ML IVP SCH (15:04)
[2020-12-21 02:47] LABS: Basophils % 0.3 %; Eosinophils # 0.2 K/mcL (0.0-0.6); Eosinophils % 2.3 %; Hematocrit 28.7 % (35.3-44.9); Hemoglobin 8.7 g/dL (11.5-15.4); Immature Granulocytes % 0.3 % (0-4); Lymphocytes # 0.7 K/mcL (0.6-4.6); Mean Corpuscular HGB Conc 30.3 g/dL (31.6-35.5); Mean Corpuscular Hemoglobin 28.7 pg (28.0-33.3); Mean Corpuscular Volume 94.7 fL (83.0-100.0); Mean Platelet Volume 11.3 fL (9.4-12.4); Monocytes # 0.6 K/mcL (0.0-1.3); Monocytes % 9.2 %; Neutrophils # 5.1 K/mcL (1.6-8.9); Platelet Count 118 K/mcL (140-400); Red Blood Count 3.03 M/mcL (3.82-4.97); Red Cell Distribution Width 13.5 % (11.5-14.5); Segmented Neutrophils % 77.9 %; White Blood Count 6.5 K/mcL (4.3-11.1)
[2020-12-21 03:01] LABS: Calcium 8.5 mg/dL (8.6-10.3); Potassium 3.6 mEq/L (3.5-5.1)
[2020-12-21 03:05] LABS: INR 3.6; Prothrombin Time 40.5 Seconds (9.4-12.1)
[2020-12-21] MEDS: amLODIPine 5 MG TABLET PO SCH (07:43)
[2020-12-21] MEDS: Aspirin Enteric Coated 325 MG Tablet PO SCH (07:43)
[2020-12-21] MEDS: lisinopriL 20 MG TABLET PO SCH (07:43)
[2020-12-21] MEDS: Cyanocobalamin (B-12) 1,000 MCG TABLET PO SCH (07:43)
[2020-12-21] MEDS: Lactobacillus 1 EACH CAP.SPRINK PO SCH ×2 (07:44→21:35)
[2020-12-21] MEDS: cefTRIAXone 2,000 MG in Water for inj. (sterile) 20 ML IVP SCH (16:17)
[2020-12-22 02:28] LABS: INR 2.3; Prothrombin Time 25.8 Seconds (9.4-12.1)
[2020-12-22 02:41] LABS: Calcium 8.3 mg/dL (8.6-10.3); Potassium 3.3 mEq/L (3.5-5.1)
[2020-12-22] MEDS: lisinopriL 20 MG TABLET PO SCH (10:27)
[2020-12-22] MEDS: amLODIPine 5 MG TABLET PO SCH (10:27)
[2020-12-22] MEDS: Cyanocobalamin (B-12) 1,000 MCG TABLET PO SCH (10:28)
[2020-12-22] MEDS: Lactobacillus 1 EACH CAP.SPRINK PO SCH (10:28)
[2020-12-22] MEDS: Aspirin Enteric Coated 325 MG Tablet PO SCH (10:28)
[2020-12-22 11:30] VITALS: BP 143/92
[2020-12-22] MEDS ORDERED: *HR* Warfarin 1 MG TABLET PO ONE (18:00)
== END 2020-12-22 13:20 | disposition home or self-care (01) | DRG 689 ==
LOC: 2ANU 00:22 → EMEROOARM 00:22 → SUATTDRO 04:33 → 2ANU 05:11
PROVIDERS: ADMIT Student in an Organized Health Care Education/Training Program; ATTEND Internal Medicine

== ENCOUNTER 2021-05-05 13:36 | Inpatient (IN) ==
[2021-05-05] MEDS ORDERED: 0.9 % Sodium Chloride 1,000 ML IVC ONE (14:10)
[2021-05-05 14:43] LABS: Basophils # 0.1 K/mcL (0.0-0.2); Basophils % 0.5 %; Eosinophils # 0.1 K/mcL (0.0-0.6); Eosinophils % 1.4 %; Hematocrit 26.5 % (35.3-44.9); Hemoglobin 8.1 g/dL (11.5-15.4); Immature Granulocytes % 0.4 % (0-4); Lymphocytes # 0.9 K/mcL (0.6-4.6); Lymphocytes % 10.1 %; Mean Corpuscular HGB Conc 30.6 g/dL (31.6-35.5); Mean Corpuscular Hemoglobin 29.8 pg (28.0-33.3); Mean Corpuscular Volume 97.4 fL (83.0-100.0); Mean Platelet Volume 11.2 fL (9.4-12.4); Monocytes # 0.5 K/mcL (0.0-1.3); Monocytes % 5.8 %; Neutrophils # 7.5 K/mcL (1.6-8.9); Platelet Count 155 K/mcL (140-400); Red Blood Count 2.72 M/mcL (3.82-4.97); Red Cell Distribution Width 13.4 % (11.5-14.5); Segmented Neutrophils % 81.8 %; White Blood Count 9.1 K/mcL (4.3-11.1)
[2021-05-05 14:49] LABS: INR 2.6; Prothrombin Time 29.2 Seconds (9.4-12.1)
[2021-05-05 15:03] LABS: BUN/Creatinine Ratio 16 (6-26); Blood Urea Nitrogen 64 mg/dL (8-23); Calcium 8.8 mg/dL (8.6-10.3); Carbon Dioxide 20 mEq/L (23-29); Chloride 109 mEq/L (98-107); Glucose 129 mg/dL (70-105); Osmolality,Calculated 306 (280-300); Potassium 3.9 mEq/L (3.5-5.1); Sodium 138 mEq/L (136-145); Troponin I < 0.03 ng/mL (< 0.04); eGFR For African Americans 13 (> 60); eGFR For Non-African Americans 11 (> 60)
[2021-05-05] MEDS ORDERED: *HR* Metoprolol 5 MG/5 ML VIAL IVP ONE (17:37)
[2021-05-05] MEDS ORDERED: Naloxone 0.4 MG/ML INJ IVP PRN (22:37)
[2021-05-05] MEDS ORDERED: *HR* HYDROcodone/Acet 5/325 mg TABLET PO PRN (22:37)
[2021-05-05] MEDS ORDERED: Acetaminophen 325 MG TABLET PO PRN (22:37)
[2021-05-05] MEDS ORDERED: SODIUM CHLORIDE/NAHCO3/KCL/PEG 4,000 ML SOLN.RECON PO ONE (23:45)
[2021-05-06 02:09] LABS: Basophils % 0.5 %; Eosinophils # 0.2 K/mcL (0.0-0.6); Eosinophils % 1.9 %; Hematocrit 25.6 % (35.3-44.9); Hemoglobin 7.5 g/dL (11.5-15.4); Immature Granulocytes % 0.3 % (0-4); Lymphocytes # 1.5 K/mcL (0.6-4.6); Lymphocytes % 16.6 %; Mean Corpuscular HGB Conc 29.3 g/dL (31.6-35.5); Mean Corpuscular Volume 98.8 fL (83.0-100.0); Mean Platelet Volume 11.2 fL (9.4-12.4); Monocytes # 0.7 K/mcL (0.0-1.3); Monocytes % 7.4 %; Neutrophils # 6.5 K/mcL (1.6-8.9); Platelet Count 140 K/mcL (140-400); Red Blood Count 2.59 M/mcL (3.82-4.97); Red Cell Distribution Width 13.3 % (11.5-14.5); Segmented Neutrophils % 73.3 %; White Blood Count 8.9 K/mcL (4.3-11.1)
[2021-05-06 02:17] LABS: INR 2.7; Prothrombin Time 30.2 Seconds (9.4-12.1)
[2021-05-06 02:25] LABS: Albumin 3.5 g/dL (3.5-5.7); Albumin/Globulin Ratio 1.4 (1.1-2.2); Bilirubin,Total 0.3 mg/dL (0.3-1.0); Calcium 8.5 mg/dL (8.6-10.3); Globulin 2.5 g/dL (2.4-3.5); Magnesium 1.8 mg/dL (1.6-2.6); Phosphorous 3.6 mg/dL (2.7-4.5); Potassium 3.7 mEq/L (3.5-5.1)
[2021-05-06] MEDS ORDERED: Dextrose Gel 15 GM/37.5 ML TUBE PO PRN ×2 (02:48)
[2021-05-06] MEDS ORDERED: *HR* Dextrose 50 % in Water (Syg) 50 ML SYRINGE IVP PRN (02:48)
[2021-05-06] MEDS ORDERED: D5% in Water 1,000 ML IVC PRN (02:48)
[2021-05-06] MEDS: *HR* Promethazine 25 MG/ML VIAL IM PRN ×2 (03:44→16:39)
[2021-05-06 05:07] LABS: % Iron Saturation 27 % (15-50); Iron 71 mcg/dL (50-170); Transferrin 191 mg/dL (203-362)
[2021-05-06 05:24] LABS: Ferritin 51 ng/mL (10-120)
[2021-05-06] MEDS ORDERED: Pantoprazole 40 MG VIAL IVP ONE (05:28)
[2021-05-06 05:30] LABS: Folate 11.9 ng/mL (3.0-16.0)
[2021-05-06] MEDS ORDERED: *HR* Phytonadione 5 MG TABLET PO ONE (05:39)
[2021-05-06] MEDS: Pantoprazole 40 MG VIAL IVP SCH ×2 (06:38→17:42)
[2021-05-06] MEDS: Cyanocobalamin (B-12) 1,000 MCG TABLET PO SCH (07:57)
[2021-05-06] MEDS: Chlorhexidine Rinse 15 ML MOUTHWASH MM SCH ×2 (07:58→20:58)
[2021-05-06] MEDS ORDERED: 0.9 % Sodium Chloride 1,000 ML IVC SCH (13:00)
[2021-05-06 16:05] LABS: Hematocrit 22.2 % (35.3-44.9); Hemoglobin 6.8 g/dL (11.5-15.4)
[2021-05-06] MEDS ORDERED: 0.9 % Sodium Chloride 250 ML IVC SCH (16:30)
[2021-05-06] MEDS: Ondansetron 4 MG/2 ML VIAL IVP PRN (20:58)
[2021-05-06 22:20] LABS: Hematocrit 26.4 % (35.3-44.9); Hemoglobin 8.3 g/dL (11.5-15.4)
[2021-05-06 22:27] LABS: INR 2.2; Prothrombin Time 24.8 Seconds (9.4-12.1)
[2021-05-07 01:59] LABS: Basophils % 0.4 %; Eosinophils % 0.2 %; Hematocrit 24.7 % (35.3-44.9); Hemoglobin 7.8 g/dL (11.5-15.4); Immature Granulocytes % 0.5 % (0-4); Lymphocytes # 1.2 K/mcL (0.6-4.6); Lymphocytes % 12.5 %; Mean Corpuscular HGB Conc 31.6 g/dL (31.6-35.5); Mean Corpuscular Hemoglobin 30.2 pg (28.0-33.3); Mean Corpuscular Volume 95.7 fL (83.0-100.0); Mean Platelet Volume 10.8 fL (9.4-12.4); Monocytes # 0.6 K/mcL (0.0-1.3); Monocytes % 6.6 %; Neutrophils # 7.7 K/mcL (1.6-8.9); Platelet Count 138 K/mcL (140-400); Red Blood Count 2.58 M/mcL (3.82-4.97); Red Cell Distribution Width 14.7 % (11.5-14.5); Segmented Neutrophils % 79.8 %; White Blood Count 9.6 K/mcL (4.3-11.1)
[2021-05-07 02:07] LABS: Prothrombin Time 21.8 Seconds (9.4-12.1)
[2021-05-07 02:16] LABS: Calcium 8.6 mg/dL (8.6-10.3); Magnesium 1.8 mg/dL (1.6-2.6); Potassium 3.8 mEq/L (3.5-5.1)
[2021-05-07] MEDS: Pantoprazole 40 MG VIAL IVP SCH ×2 (05:03→18:28)
[2021-05-07] MEDS: Chlorhexidine Rinse 15 ML MOUTHWASH MM SCH ×2 (07:46→21:44)
[2021-05-07] MEDS: Cyanocobalamin (B-12) 1,000 MCG TABLET PO SCH (07:47)
[2021-05-07] MEDS ORDERED: *HR* Metoprolol 5 MG/5 ML VIAL IVP ONE ×3 (14:37→21:14)
[2021-05-07] MEDS ORDERED: *HR* FentaNYL (PF) 100 MCG/2 ML VIAL ONE (15:55)
[2021-05-07] MEDS ORDERED: *HR* Midazolam HCl 5 MG/5 ML VIAL IVP ONE (15:55)
[2021-05-07] MEDS ORDERED: PEG/Electrolytes/Ascorbic Acid 1 EACH POWD.PACK PO ONE (17:24)
[2021-05-07] MEDS ORDERED: Metoprolol 100 MG TABLET PO ONE ×2 (17:28)
[2021-05-07 18:02] LABS: Hematocrit 24.9 % (35.3-44.9); Hemoglobin 7.6 g/dL (11.5-15.4)
[2021-05-07] MEDS ORDERED: Ringers Solution, Lactated 1,000 ML IVC SCH (21:15)
[2021-05-07] MEDS ORDERED: Ringers Solution, Lactated 500 ML IVC ONE (21:18)
[2021-05-07] MEDS: Ondansetron 4 MG/2 ML VIAL IVP PRN (21:41)
[2021-05-07 23:03] LABS: Hematocrit 22.8 % (35.3-44.9)
[2021-05-08 03:18] LABS: Basophils % 0.4 %; Eosinophils % 0.2 %; Hematocrit 22.3 % (35.3-44.9); Hemoglobin 6.7 g/dL (11.5-15.4); Immature Granulocytes % 0.4 % (0-4); Lymphocytes # 1.2 K/mcL (0.6-4.6); Lymphocytes % 13.1 %; Mean Corpuscular Hemoglobin 29.1 pg (28.0-33.3); Mean Platelet Volume 11.3 fL (9.4-12.4); Monocytes # 0.7 K/mcL (0.0-1.3); Monocytes % 7.6 %; Neutrophils # 7.4 K/mcL (1.6-8.9); Platelet Count 140 K/mcL (140-400); Red Cell Distribution Width 14.8 % (11.5-14.5); Segmented Neutrophils % 78.3 %; White Blood Count 9.5 K/mcL (4.3-11.1)
[2021-05-08 03:27] LABS: INR 1.5; Prothrombin Time 16.3 Seconds (9.4-12.1)
[2021-05-08 03:38] LABS: Calcium 8.3 mg/dL (8.6-10.3); Magnesium 1.8 mg/dL (1.6-2.6); Potassium 3.9 mEq/L (3.5-5.1)
[2021-05-08] MEDS: Pantoprazole 40 MG VIAL IVP SCH ×2 (05:31→17:48)
[2021-05-08] MEDS ORDERED: 0.9 % Sodium Chloride 250 ML ONE (08:08)
[2021-05-08 08:09] LABS: Bacteria,Urine Few per hpf (None-Few); Bilirubin,Urine Negative (Negative); Blood,Urine Large (Negative); Clarity,Urine Clear (Clear); Color,Urine Colorless (Yellow); Glucose,Urine (UA) Normal (Normal); Ketones,Urine Negative (Negative); Leukocyte Esterase,Urine Negative (Negative); Mucus,Urine Few per lpf (None-Few); Nitrite,Urine Negative (Negative); Protein,Urine Trace mg/dL (Neg-Trace); Specific Gravity,Urine 1.013 (1.010-1.025); Squamous Epithelial Cell,Urine Few per hpf (None-Few); Urobilinogen,Urine Normal (Normal); WBC,Urine 0-3 per hpf (0-3)
[2021-05-08] MEDS: Cyanocobalamin (B-12) 1,000 MCG TABLET PO SCH (09:16)
[2021-05-08] MEDS: amLODIPine 5 MG TABLET PO SCH (09:16)
[2021-05-08] MEDS: Chlorhexidine Rinse 15 ML MOUTHWASH MM SCH ×2 (09:16→20:47)
[2021-05-08] MEDS: calcitrioL 0.25 MCG CAPSULE PO SCH (09:17)
[2021-05-08 14:20] LABS: Hematocrit 26.3 % (35.3-44.9); Hemoglobin 8.7 g/dL (11.5-15.4)
[2021-05-09] MEDS: Pantoprazole 40 MG VIAL IVP SCH ×2 (05:18→17:01)
[2021-05-09 06:18] LABS: Basophils % 0.4 %; Eosinophils # 0.2 K/mcL (0.0-0.6); Eosinophils % 2.7 %; Hematocrit 24.9 % (35.3-44.9); Immature Granulocytes % 0.5 % (0-4); Mean Corpuscular HGB Conc 32.1 g/dL (31.6-35.5); Mean Corpuscular Hemoglobin 30.2 pg (28.0-33.3); Mean Platelet Volume 10.8 fL (9.4-12.4); Monocytes # 0.7 K/mcL (0.0-1.3); Monocytes % 9.6 %; Neutrophils # 5.4 K/mcL (1.6-8.9); Platelet Count 132 K/mcL (140-400); Red Blood Count 2.65 M/mcL (3.82-4.97); Red Cell Distribution Width 14.7 % (11.5-14.5); Segmented Neutrophils % 73.8 %; White Blood Count 7.3 K/mcL (4.3-11.1)
[2021-05-09 06:24] LABS: INR 1.3; Prothrombin Time 14.5 Seconds (9.4-12.1)
[2021-05-09 06:37] LABS: Calcium 8.6 mg/dL (8.6-10.3); Magnesium 1.7 mg/dL (1.6-2.6); Potassium 3.6 mEq/L (3.5-5.1)
[2021-05-09 08:49] LABS: Hematocrit 25.8 % (35.3-44.9); Hemoglobin 8.2 g/dL (11.5-15.4)
[2021-05-09] MEDS ORDERED: Lidocaine -MPF 2% 2 ML VIAL ONE (09:54)
[2021-05-09] MEDS ORDERED: *HR* Propofol 200 MG/20 ML VIAL IVP ONE (09:55)
[2021-05-09] MEDS: Cyanocobalamin (B-12) 1,000 MCG TABLET PO SCH (11:26)
[2021-05-09] MEDS: Chlorhexidine Rinse 15 ML MOUTHWASH MM SCH ×2 (11:26→21:45)
[2021-05-09] MEDS: amLODIPine 5 MG TABLET PO SCH (11:26)
[2021-05-09] MEDS: calcitrioL 0.25 MCG CAPSULE PO SCH (11:26)
[2021-05-09 12:29] LABS: Hematocrit 25.7 % (35.3-44.9); Hemoglobin 8.1 g/dL (11.5-15.4)
[2021-05-09 20:25] LABS: Hematocrit 25.9 % (35.3-44.9); Hemoglobin 8.1 g/dL (11.5-15.4)
[2021-05-10 03:39] LABS: Basophils % 0.4 %; Eosinophils # 0.3 K/mcL (0.0-0.6); Eosinophils % 3.3 %; Hematocrit 24.3 % (35.3-44.9); Hemoglobin 7.7 g/dL (11.5-15.4); Immature Granulocytes % 0.4 % (0-4); Lymphocytes # 1.1 K/mcL (0.6-4.6); Lymphocytes % 13.2 %; Mean Corpuscular HGB Conc 31.7 g/dL (31.6-35.5); Mean Corpuscular Volume 94.6 fL (83.0-100.0); Mean Platelet Volume 11.2 fL (9.4-12.4); Monocytes # 0.7 K/mcL (0.0-1.3); Monocytes % 8.3 %; Neutrophils # 5.9 K/mcL (1.6-8.9); Platelet Count 137 K/mcL (140-400); Red Blood Count 2.57 M/mcL (3.82-4.97); Red Cell Distribution Width 14.6 % (11.5-14.5); Segmented Neutrophils % 74.4 %
[2021-05-10 03:50] LABS: Calcium 8.5 mg/dL (8.6-10.3); INR 1.3; Potassium 3.9 mEq/L (3.5-5.1)
[2021-05-10 06:54] VITALS: BP 119/74; PULSE 95; TEMP 98.4; O2SAT 92
[2021-05-10] MEDS: Pantoprazole 40 MG VIAL IVP SCH (07:40)
[2021-05-10] MEDS: amLODIPine 5 MG TABLET PO SCH (10:09)
[2021-05-10] MEDS: Chlorhexidine Rinse 15 ML MOUTHWASH MM SCH (10:09)
[2021-05-10] MEDS: Cyanocobalamin (B-12) 1,000 MCG TABLET PO SCH (10:09)
== END 2021-05-10 12:06 | disposition home or self-care (01) | DRG 378 ==
LOC: SUATTDRO → 3ANU 13:36 → EMEROOARM 13:36 → SUATTDRO 20:19 → 3ANU 21:35
PROVIDERS: ADMIT Family Medicine; ATTEND Internal Medicine